=== PATIENT | female | born 1975 | race Caucasian/White ===

== ENCOUNTER → 2017-04-22 11:38 | Outpatient (CLI) | payer OTHER, SELFPAY | PROVIDERS: Family Provider Family Medicine; PCP Family Medicine; Visit Provider Family Medicine | DX: R00.2 Palpitations (principal) | CPT/HCPCS: 93225; 93226 ==

== ENCOUNTER → 2017-05-23 06:00 | Outpatient (CLI) | payer OTHER, SELFPAY ==
--- NOTE | 2017-05-23 10:28 | RAD_ITS ---
STUDY: X-RAY - ABDOMEN/PELVIS REASON FOR EXAM: Female, 42 years old. History of left-sided kidney stones. TECHNIQUE: Single AP view of the abdomen / pelvis. COMPARISON: None. FINDINGS: There is a moderate amount of colonic fecal material. The visualized liver, spleen and kidneys are grossly normal in size and morphology. A 2.9 mm well-defined calcification is seen in the left hemipelvis. This most likely represents a phlebolith. Normal visualized osseous structures. RAD/Abdomen Single View IMPRESSION: Findings suggestive of a phlebolith in the left hemipelvis. Electronically Signed: Anibal Feliz MD at 10:47 EDT Tel [phone], Service support ,
[2017-05-23 10:53] VITALS: BP 120/80; PULSE 81; RESP 16; TEMP 36.8; O2SAT 100; BMI 27.6
[2017-05-23 10:53] LABS: Internal QC Validated? YES +Cl - CLEAR BKGD; Pregnancy, Urine Negative Negative
--- OUTSIDE RECORDS SUMMARY | 2017-07-25 20:16 | XMS RPT_ITS ---
:1975 Author Organization OHIP Care Team Providers Name Role Phone ACOSTA COHN) Attending Unavailable ACOSTA COHN) Referring Unavailable ACOSTA COHN) Referring Unavailable ACOSTA COHN) Referring Unavailable ACOSTA COHN) Attending Unavailable ACOSTA COHN) Referring Unavailable TOÑITO KLEIN DO Admitting Unavailable TOIÑTO KLEIN DO Attending Unavailable TOÑITO KLEIN DO Primary Care Unavailable DIDUR, GERARD DO Admitting Unavailable DIDPRIYANK, GERARD QUINTANILLA Attending Unavailable NO, DOCTOR ON Referring Unavailable GERARD GARCIA DO Primary Care Unavailable NO, DOCTOR ON Consulting Unavailable Raul Cohn Attending Unavailable Raul Cohn Referring Unavailable Raul Cohn Primary Care Unavailable Kwame Rahman Attending Unavailable Raul Cohn Referring Unavailable PROBLEMS PROBLEMS DATE TYPE CONDITION / CODE ATTENDING STATUS SOURCE 05/22/2017 Unknown R00.2 - RahmanShineel Active Edward Palpitations / Community R00.2(ICD-10) Hospital Repository 04/17/2017 Active Palpitations / NA Active Morgan R00.2(ICD-10) [facility] [place] Repository 04/17/2017 Active Unknown / LALIT, Active Eddie UNK(Unknown) ACOSTA Choi [facility] () [facility] Repository PROCEDURES PROCEDURES No Procedure Records FoundRESULTS RESULTS PROGRESS Observed: 07/18/2017 Status: COMPLETED Source: [place] 10:00 AM [facility] REPOSITORY HNO ID: [id number]: Acosta Gan) LalitService : (none)Author Type: PhysicianType: Progress NotesFiled: 07/18/2017 8:22 PMNote Text:Chief ComplaintPatient presents with:Establish Tyshawn Stern is a 42 year old female who presents here today formerly [facility], [facility] visit and 3 month follow up.Since last OV, patient states she did obtain the Holter monitor and wascalled and told it was benign, but results not available today. Patientstates that she has noted some more fluttering when she has been stressed,but no rapid bursts, chest pain , or tachycardia.Has history of peanut allergy. Noted that she had potato chips last nightand is worried that they may have had peanut oil on them. Feels liketongue is swollen, no trouble swallowing, and admits to mild SOB. Has nottaken anything for symptoms.Discussed weight with BMI >25. Discussed improved diet and exercise.Due for update on tetanus vaccine.Past medical history, appointments, medications, allergies reviewed.Previous Medical HistoryPAST MEDICAL HISTORYDiagnosis Date- Benign neoplasm of colon- Blood in stoolPrevious Surgical HistoryPAST SURGICAL HISTORYProcedure Laterality Date- COLONOSCOP W/ OR W/O [facility] SPEC 03/30/2008 Colonoscopy- DANDC, DIAG AND/OR THERAPEUTIC Dilation AND curettage- EXTRACTION ERUPTED TOOTH/EXR wisdom teeth- L'SCOPE DX W/WO BRUSHINGS/WASHINGS Laparoscopy- SIGMOIDS DIAG W/REM POLYP HT BX 12/30/07Family HistoryFAMILY HISTORYProblem Relation Age of Onset- Cancer Father Prostate- Cancer Maternal Grandmother OVARIAN- Diabetes Maternal Grandmother- Cancer Maternal Grandfather SKIN- Stroke Maternal Grandfather- Cancer Paternal GrandmotherPatient AllergiesALLERGIESAllergen Reactions- Antihistamines Mental Status Change- PeanutsCurrent MedicationsNo current outpatient prescriptions on file prior to visit.No current facility- administered medications on file prior to visit.Social HistorySocial History Marital status : Spouse name: Jose Years of education: 15 Number of children: 2Occupational 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*Social History Main Topics Smoking status: Never Smoker Smokeless tobacco: Never Used Alcohol use: Yes Comment: Rarely Drug use: No Sexual activity: Yes Partners with: Male control/protection: Surgical Comment: vasectomyReview of SymptomsREVIEW OF SYSTEMSGENERAL: No weight loss, malaise or feversNECK: Negative for lumps, goiter, pain and significant neck swellingRESPIRATORY: Negative for cough, hemoptysis, wheezing, COPD, dyspnea orshortness of breathCARDIOVASCULAR: Negative for chest pain, leg swelling, hypertension, CHFor palpitationsGI: No nausea, vomiting, or diarrheaSKIN: Negative for lesions, rash, and itchingEXAM:BP 116/72 Pulse 76 Resp 20 Ht 163.8 cm (5' 4.5) Wt 74.8 kg(165 lb) BMI 27.88 kg/m? General Appearance: Well appearing, alert, in no acute distress,well-hydrated, well nourished..Skin: Skin color, texture, turgor normal, no suspicious rashes or lesions.Oropharynx: Tongue normal size, no oropharyngeal swelling. Right tonsil2+, left 1+.Neck: Supple, no adenopathy; thyroid symmetric, normal size, no bruits.Lungs: Lungs clear to auscultation. No wheezing, rhonchi, rales.Heart: RRR without murmur, gallop, or rubs. No ectopy.Abdomen: Normal abdominal exam, Abdomen soft, non- tender. Bowel soundsnormal. No masses, organomegaly.Extremities: No deformities, edema , skin discoloration, clubbing orcyanosis. Good capillary refill. .Health Maintenance ListDTAP,TDAP,TD(2 - Tdap) due on 04/06/1997MAMMOGRAM due on 07/25/2017PAP EVERY 5 YEARS due on 02/03/2020HPV EVERY 5 YEARS due on 02/03/2020INFLUENZA CompletedData reviewedComponent Latest Ref Rng AND Units 03/15/2015 04/17/2017Protein, Total 6.3 - 8.0 g/dL 8.0Albumin 3.9 - 4.9 g/dL 4.3Calcium 8.5 - 10.2 mg/dL 9.0 9.3Bilirubin, Total 0.2 - 1.3 mg/dL 0.3Alkaline Phosphatase 32 - 117 U/L 76AST 13 - 35 U/L 18Glucose 74 - 99 mg/dL 85 103 (H)BUN 7 - 21 mg/dL 9 11Creatinine 0.58 - 0.96 mg/dL 0.72 0.80Sodium 136 - 144 mmol/L 138 136Potassium 3.7 - 5.1 mmol/L 4.8 3.7Chloride 97 - 105 mmol/L 102 98CO2 22 - 30 mmol/L 26 24Anion Gap 9 - 18 mmol/L 10 14ALT 7 - 38 U/L 13eGFR- >60 >60eGFR-All Other Races . >60 >60WBC 3.70 - 11.00 k/uL 10.04RBC 3.90 - 5.20 m/uL 4.34Hemoglobin 11.5 - 15.5 g/dL 12.9Hematocrit 36.0 - 46.0 % 39.7MCV 80.0 - 100.0 fL 91.5MCH 26.0 - 34.0 pG 29.7MCHC 30.5 - 36.0 g/dL 32.5RDW-CV 11.5 - 15.0 % 12.9Platelet Count 150 - 400 k/uL 267MPV 9.0 - 12.7 fL 12.3Absolute nRBC <0.01 k/uL < 0.01Triglyceride 30 - 149 mg/dL 77Cholesterol, Total 100 - 199 mg/dL 170HDL Cholesterol >55 mg/ dL 58VLDL Cholesterol 6 - 40 mg/dL 15LDL Cholesterol 60 - 129 mg/dL 97Fasting Time hrs 12TC:HDL Ratio 1.00 - 5.00 2.93LDL:HDL Ratio 0.50 - 3.55 1.67Non HDL Cholesterol 90 - 159 mg/dL 112TSH 0.400 - 5.500 uU/mL 2.760 2.890ASSESSMENT/PLAN:1. Palpitations - ICD9: 785.1, ICD10: R00.2 (primary diagnosis)Improved. Will obtain holter monitor results. Discussed symptoms may berelated to stress. Denies anxiety symptoms today.2. Overweight (BMI 25.0-29.9) - ICD9: 278.02, ICD10: E66.3Advised improved diet and exercise. Will recheck at future OV.3. Peanut allergy - ICD9: V15.01, ICD10: Z91.010No swelling today. Will have patient treat with OTC antihistamines. Givenprednisone for worsening symptoms. Discussed red flag symptoms which sheshould present to ED for.4. Need for vaccination - ICD9: V05.9, ICD10: Z23- TDAP VACCINE AGE 7+ Killian Cohn MD CNOV Observed: 07/18/2017 Status: COMPLETED Source: [place] 10:00 AM [facility] REPOSITORY Office Visit (FAMPWS) ---------BELEN STERN ([id number]) 1975 [facility] Time Provider Department07/18/17 10:00 AM ACOSTA COHN) FAMPWS During your visit today, we recorded the following information about you: Pulse Respiration Blood pressure Weight 76/minute 20/minute 116/72 74.8 kg Height 1.638 Homer Cohn MD 07/18/2017 8:22 PM SignedChief ComplaintPatient presents with:[facility] DepartmentJolanta Rosey Stern is a 42 year old female who [facility].Since last OV, patient states she did obtain the Holter monitor and was calledand told it was benign, but results not available today. Patient states thatshmariluz has noted some more fluttering when she has been stressed, but no rapidbursts, chest pain, or tachycardia.Has history of peanut allergy. Noted that she had potato chips last night andis worried that they may have had peanut oil on them. Feels like tongue isswollen, no trouble swallowing, and admits to mild SOB. Has not taken anythingfor symptoms.Discussed weight with BMI >25. Discussed improved diet and exercise.Due for update on tetanus vaccine.Past medical history, appointments, medications, allergies reviewed.Previous Medical HistoryPAST MEDICAL HISTORYDiagnosis Date- Benign neoplasm of colon- Blood in stoolPrevious Surgical HistoryPAST SURGICAL HISTORYProcedure Laterality Date- COLONOSCOP W/ OR W/O [facility] SPEC 03/30/2008 Colonoscopy- DANDC, DIAG AND/OR THERAPEUTIC Dilation AND curettage- EXTRACTION ERUPTED TOOTH/EXR wisdom teeth- L'SCOPE DX W/WO BRUSHINGS/WASHINGS Laparoscopy- SIGMOIDS DIAG W/REM POLYP HT BX Family HistoryFAMILY HISTORYProblem Relation Age of Onset- Cancer Father Prostate- Cancer Maternal Grandmother OVARIAN- Diabetes Maternal Grandmother- Cancer Maternal Grandfather SKIN- Stroke Maternal Grandfather- Cancer Paternal GrandmotherPatient AllergiesALLERGIESAllergen Reactions- Antihistamines Mental Status Change- PeanutsCurrent MedicationsNo current outpatient prescriptions on file prior to visit.No current facility-administered medications on file prior to visit.Social HistorySocial History Marital status: Spouse name: Jose Years of education: 15 Number of children: 2Occupational 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*Social History Main Topics Smoking status: Never Smoker Smokeless tobacco : Never Used Alcohol use: Yes Comment: Rarely Drug use: No Sexual activity: Yes Partners with: Male control/protection: Surgical Comment: vasectomyReview of SymptomsREVIEW OF SYSTEMSGENERAL: No weight loss, malaise or feversNECK: Negative for lumps, goiter, pain and significant neck swellingRESPIRATORY: Negative for cough, hemoptysis, wheezing, COPD, dyspnea orshortness of breathCARDIOVASCULAR: Negative for chest pain, leg swelling, hypertension, CHF orpalpitationsGI: No nausea, vomiting, or diarrheaSKIN: Negative for lesions, rash, and itchingEXAM: BP 116/72 Pulse 76 Resp 20 Ht 163.8 cm (5' 4.5) Wt 74.8 kg (165lb) BMI 27.88 kg/m? General Appearance: Well appearing, alert, in no acute distress, well-hydrated,well nourished..Skin: Skin color, texture, turgor normal, no suspicious rashes or lesions.Oropharynx: Tongue normal size, no oropharyngeal swelling. Right tonsil 2+,left 1+.Neck: Supple, no adenopathy; thyroid symmetric, normal size, no bruits.Lungs: Lungs clear to auscultation. No wheezing, rhonchi, rales.Heart: RRR without murmur, gallop, or rubs. No ectopy.Abdomen: Normal abdominal exam, Abdomen soft, non-tender. Bowel sounds normal.No masses, organomegaly.Extremities: No deformities, edema, skin discoloration, clubbing or cyanosis.Good capillary refill. .Health Maintenance ListDTAP,TDAP,TD(2 - Tdap) due on 1997MAMMOGRAM due on 07/25/2017PAP EVERY 5 YEARS due on 02/03/2020HPV EVERY 5 YEARS due on 2019INFLUENZA CompletedData reviewedComponent Latest Ref Rng AND Units 03/15/2015 04/17/2017Protein, Total 6.3 - 8.0 g/dL 8.0Albumin 3.9 - 4.9 g/dL 4.3Calcium 8.5 - 10.2 mg/dL 9.0 9.3Bilirubin, Total 0.2 - 1.3 mg/dL 0.3Alkaline Phosphatase 32 - 117 U/L 76AST 13 - 35 U/L 18Glucose 74 - 99 mg/dL 85 103 (H) BUN 7 - 21 mg/dL 9 11Creatinine 0.58 - 0.96 mg/dL 0.72 0.80Sodium 136 - 144 mmol/L 138 136Potassium 3.7 - 5.1 mmol/L 4.8 3.7Chloride 97 - 105 mmol/L 102 98CO2 22 - 30 mmol/L 26 24Anion Gap 9 - 18 mmol /L 10 14ALT 7 - 38 U/L 13eGFR- >60 >60eGFR-All Other Races . >60 >60WBC 3.70 - 11.00 k/uL 10.04RBC 3.90 - 5.20 m/uL 4.34Hemoglobin 11.5 - 15.5 g/dL 12.9Hematocrit 36.0 - 46.0 % 39.7MCV 80.0 - 100.0 fL 91.5MCH 26.0 - 34.0 pG 29.7MCHC 30.5 - 36.0 g/dL 32.5RDW-CV 11.5 - 15.0 % 12.9Platelet Count 150 - 400 k/uL 267MPV 9.0 - 12.7 fL 12.3Absolute nRBC <0.01 k/uL & lt;0.01Triglyceride 30 - 149 mg/dL 77Cholesterol, Total 100 - 199 mg/dL 170HDL Cholesterol >55 mg/dL 58VLDL Cholesterol 6 - 40 mg/dL 15LDL Cholesterol 60 - 129 mg/dL 97Fasting Time hrs 12TC:HDL Ratio 1.00 - 5.00 2.93LDL:HDL Ratio 0.50 - 3.55 1.67Non HDL Cholesterol 90 - 159 mg/dL 112TSH 0.400 - 5.500 uU/mL 2.760 2.890ASSESSMENT/PLAN:1. Palpitations - ICD9: 785.1, ICD10: R00.2 (primary diagnosis)Improved. Will obtain holter monitor results. Discussed symptoms may be relatedto stress. Denies anxiety symptoms today.2. Overweight (BMI 25.0-29.9) - ICD9: 278.02, ICD10: E66.3Advised improved diet and exercise. Will recheck at future OV.3. Peanut allergy - ICD9: V15.01, ICD10: Z91.010No swelling today. Will have patient treat with OTC antihistamines. Givenprednisone for worsening symptoms. Discussed red flag symptoms which she shouldpresent to ED for.4. Need for vaccination - ICD9: V05.9, ICD10: Z23- TDAP VACCINE AGE 7+ IMChristopZACH Keitaefkrysta Provider: ACOSTA COHN) [[id number]]Allergies As of Date: 07/18/2017 Noted Allergy ReactionANTIHISTAMINES 10/02/2004 1 - Mental Status ChangePEANUTS 2004 7 - Swelling Comments: Tongue swellingDate Reviewed: 07/18/2017Reviewed by: Cande Rojas) STEVEN Sousa - Fully AssessedReason for Visit: [facility] [42]Primary Visit Diagnosis: Palpitations [R00.2] Other Visit Diagnoses:Overweight (BMI 25.0-29.9) [E66.3] Peanut allergy [Z91.010] Need for vaccination [Z23] Screening mammogram, encounter for [Z12.31] Dense breast tissue on mammogram [R92.2]Order(s ):TDAP VACCINE AGE 7+ IM [[id number]] Order #: [id number] predniSONE (DELTASONE) 20 mg tabletTake 2 tablets by mouth once daily for 5 days.Disp: 10 tabletRfl: 0 ROMAINE DIAG W ZE BILAT [ [id number]] Order #: [id number] FUTUREPrescriptions as of 07/18/2017 Sig: PREDNISONE 20 MG TABLET Take 2 tablets by mouth once *Problem List As Of Date 07/18/2017 Noted Resolved Depressive disorder, not elsewhere classified [*INVALID FOR*04/15/2012 More... Irregular menses [N92.6] INVALID FOR*Prescriptions ordered this encounter Disp Refills Start End PREDNISONE 20 MG TABLET 10 t* 0 07/18/2017 Route: ORAL Sig: Take 2 tablets by mouth once daily for 5 days.Disposition: Return in about 6 months (around 01/17/2018).Follow-up and Disposition History RecordedEncounter Number: [id number] Status:Closed by ACOSTA COHN MD on 07/18/17 EMERGENCY REPORT Observed: 06/11/2017 Status: F Source: [place] 7:12 AM [facility] REPORT NAME ACCOUNT SEX AGE ADMIT DISCHARGE PT MED. RECORD# NUMBER DATE DATE TYPE DARCI [id number] F 42 05/10/17 05/10/17 3 BELEN ZAPIEN [id number] ROOM: ER DATE OF : 1975 DICTATING PHYSICIAN: Toñito Klein DATE OF SERVICE: CHIEF COMPLAINT: Left flank pain. HISTORY OF PRESENT ILLNESS: This is a 42- year-old female who presents complaining of left sided flank pain, which started earlier today. Patient reports that initially the pain started in her left low back and then started to radiate to her left lower quadrant and now is shooting down into her groin. Patient reports that she has never had pain like this in the past. It comes and goes and nothing seems to make it better. She does have associated nausea. She denies any fevers, chills, lightheadedness, dysuria or hematuria. PAST MEDICAL HISTORY: Palpitations. PAST SURGICAL HISTORY: She has had sigmoidoscopy and a dilation and curettage. ALLERGIES: She has allergies to antihistamines. SOCIAL HISTORY: She lives at home with her family. She is a nonsmoker and does not use alcohol or illicit drugs. Her immunizations are up to date. REVIEW OF SYSTEMS : A 10 point review of systems was obtained and positive for flank pain and nausea, and is otherwise negative. PHYSICAL EXAMINATION: Vital Signs: Blood pressure 120/87, pulse 79, respiratory rate 14, temperature 98.6, pulse oximetry 99% on room air. In general, the patient is alert, awake, and in no acute distress. Head is normocephalic, atraumatic. Pupils are equal, round and reactive to light and accommodation. Extraocular muscles are intact. Mucous membranes are moist. Neck is supple. Trachea is midline. Cardiac exam: Regular rate and rhythm. No murmurs appreciated. Lungs are clear to auscultation bilaterally. Abdomen is soft, nontender, nondistended with the exception of her left flank. She does have CVA tenderness and some left lower quadrant/suprapubic tenderness. Otherwise there is no rebound, guarding or rigidity. Extremities demonstrate no edema or gross deformity. Peripheral pulses are intact and equal bilaterally. She has normal strength and full range of motion. Motor and sensory are Page 1 of 2 BELEN STERN Emergency Room Report RUPALI grossly intact. The patient has appropriate mood and behavior. DIAGNOSTIC DATA: Her UA shows gross blood, but no obvious infection. It was sent for culture. Her CT scan shows left sided 4 mm ureterolithiasis at the UVJ with mild hydronephrosis. The patient's laboratory work is unremarkable. EMERGENCY DEPARTMENT COURSE AND TREATMENT: Patient is afebrile, nontoxic and in no acute distress. Patient does have discomfort when palpation of her costovertebral angle area on the left side. She also has left lower quadrant tenderness. I think the patient's symptoms could be related to nephrolithiasis, also pyelonephritis or diverticulitis are considerations. Patient was given IV fluids, pain medications, antiemetics. Laboratory work, UA and CT scan was ordered. The patient's symptoms were improved with treatment. Patient does not need to be started on antibiotics at this time, however, if her culture grows out something specific, we will send her antibiotics. Diagnostic results were discussed with the patient and her family. They expressed understanding and are agreeable with the plan. Patient will be discharged with a prescription for Percocet, Zofran, and Flomax. DIAGNOSIS: 1. Left sided ureterolithiasis. 2. Left sided hydronephrosis. DISPOSITION/PLAN: She was given a referral to follow up with Urology as an outpatient. Patient was discharged in stable condition. D: Toñito Klein DO TD: 05/10/17 18:17 JOB #: [id number] Transcribed by: abeba Electronically signed by: DR. TOÑITO KLEIN D.O. 06/11/17 07:12 Page 2 of 2 [facility] BELEN Emergency Room Report RUPALI ,URINE Collected: 05/23/2017 Status: F Source: [place] 10:43 AM [facility] REPOSITORY TYPE CODE TESTS RESULT OUT OF REFERENCE UNITS RANGE LAB L400.8000 Normal Negative HCGUQUAL Negative Result Comment: Very dilute urine specimens, as indicated by a low specificgravity, may not contain industrial sales representative levels of hCG.If is still suspected, a first morning urinespecimen should be collected 48 hours later and tested. Performed By: #### L400.7600 ####[facility] [id number] [place], [place], [address] ABDOMEN SINGLE VIEW Observed: 05/23/2017 Status: F [facility]: [place] [facility] [id number] [id number] Single ViewMR#: [id number] Acct: [id number]: BELEN STERN Rep #: [id number]: 1975 F 42 From: Anibal Feliz MDPCP: Raul Cohn MD Status: REG SDCStudy: Abdomen Single View Date of Exam : 05/23/17Exam# [id number] Ordering Dr: Venu Blanco MDSTUDY: X-RAY - ABDOMEN/PELVISREASON FOR EXAM: Female, 42 years old. History of left -sided kidneystones.TECHNIQUE: Single AP view of the abdomen / pelvis.COMPARISON: None. FINDINGS:There is a moderate amount of colonic fecal material.The visualized liver, spleen and kidneys are grossly normal in size andmorphology.A 2.9 mm well-defined calcification is seen in the left hemipelvis. Thismost likely represents a phlebolith. Normal visualized osseous structures. ORDER #: [id number] RAD/Abdomen Single ViewIMPRESSION:Findings suggestive of a phlebolith in the left hemipelvis.Electronically Signed:Anibal Feliz MD at 10:47 [facility] [phone], Service support , JZ: Venu Blanco MD ; Raul Cohn MD Size Maker:Signed EMERGENCY REPORT Observed: 05/15/2017 Status: F Source: [place]AUL[place] HERNANDEZCACHORROLEIF 3:07 AM [facility] REPORT NAME ACCOUNT SEX AGE ADMIT DISCHARGE PT MED. RECORD# NUMBER DATE DATE TYPE DARCI [id number] F 42 05/12/17 05/12/17 3 BELEN ZAPIEN [id number] ROOM: ER DATE OF : DICTATING PHYSICIAN: Gerard Garcia ADDENDUM White count came back at 20.5, but I think a lot this was reactive from her pain. Her hemoglobin was 12.8, hematocrit 37.4, platelet count 255,000. Sodium 133, potassium 3.4, chloride 101, CO2 is 22.9, BUN 7, creatinine 0.9. Glucose was 113. AST is 11, ALT is 11. Urinalysis did show 25 leukocyte esterase and 1 to 5 white cells. No bacteria, but since she had complained of a low grade fever at home, I did place her on Bactrim DS 1 p.o. b.i.d. dispense #14 with no refill, Diflucan 150 mg 1 daily dispense #3 with no refill, Zofran ODT 4 mg 1 every 8 hours as needed for nausea and vomiting, Toradol 10 mg 1 every 8 hours as needed for pain dispense #15 with no refill, and Percocet 5/325 mg 1 to 2 every 6 hours as needed for pain dispense #10 with no refill. Since she states the Percocet was not helping, I told her that she could double up on the Percocet, or I offered to write her for something for different for the pain, but she decided to go ahead and double up on the Percocet. Her pain is down to 4/10 here now, so I am going to give her 0.5 mg of Dilaudid and 4 mg of Zofran. If she continues to do well, we will let her go home to follow up with [facility] in the next 1 to 2 days. D : Gerard Garcia DO TD: 05/12/17 21:57 JOB #: [id number] Transcribed by: dian Electronically signed by: E-Sign: Dr. Gerard Garcia D.O. 05/15/17 03:06 Page 1 of 1 BELEN STERN Emergency Room Report RUPALI EMERGENCY REPORT Observed: 05/15/2017 Status: F Source: [place] 3:05 AM [facility] REPORT NAME ACCOUNT SEX AGE ADMIT DISCHARGE PT MED. RECORD# NUMBER DATE DATE TYPE DARCI, [id number] F 42 05/12/17 05/12/17 3 BELEN ZAPIEN [id number] ROOM: ER DATE OF : 1975 DICTATING PHYSICIAN: Gerard Garcia Date seen was May 12, 2017 at 10:20 a.m. HISTORY OF PRESENT ILLNESS: This is a 42-year-old female complaining of left flank pain that started on Saturday. She was seen here on Saturday and diagnosed with a 4 mm left kidney stone. Yesterday morning, her pain was good, but by noon the pain started to come back. She has been taking Percocet for the pain. The pain got very severe this morning at 9 a.m. and the Percocet was not helping. She presently rates the pain as a 10 on a severity scale of 1 to 10. She states it hurts up into her chest and up into her thoracic back. Her left flank pain gets worse with left leg movement. She did vomit once on Saturday. She still complains of nausea , but no further vomiting. Her states that she was running a low-grade fever of 100.7 last night. It was 99.5 this morning. PAST MEDICAL HISTORY: Previous kidney stones diagnosed here on Saturday. She has not had kidney stones before. ALLERGIES: She is allergic to antihistamines. SOCIAL HISTORY: She denies the use of alcohol or tobacco products. She lives at home with her family. REVIEW OF SYSTEMS: Positive for left flank pain with associated nausea and vomiting. She does admit to some chest pain and some upper thoracic back pain. She denies any abdominal pain, but does to nausea and vomiting. She denies any shortness of breath, cough, sputum, wheezing, fevers, sweats, chills, headache, numbness, unsteady gait, weakness, neck or joint pain, hives, hayfever, or swollen glands. Further review of systems is negative. PHYSICAL EXAMINATION: The patient is alert and oriented x3. She does appear in moderate distress secondary to left flank pain. HEENT: Head appears atraumatic. Pupils are equal and reactive to light. Red reflex intact bilaterally. Extraocular muscles are intact. No conjunctival injection. Nose exhibits no rhinorrhea or epigastric. Mouth: Mucous membranes are mildly dry. No pharyngeal erythema. Uvula is midline and elevates. Neck is supple. Trachea is midline. No JVD or lymphadenopathy. No posterior cervical tenderness. No nuchal rigidity. Lungs: Clear to auscultation in all lung titus. No adventitious sounds are noted. No accessory muscle use. CV : Heart rate and rhythm Page 1 of 2 [facility] [facility] Emergency Room Report RUPALI are regular without murmur. Abdomen is soft and nontender with normoactive bowel sounds x4 quadrants. No guarding or rigidity. No rebound. No palpable abdominal masses. No hepatosplenomegaly. Back does exhibit some left costovertebral angle tenderness. No midline tenderness or deformity. Extremities: No edema or cyanosis. Peripheral pulses are intact. No motor or sensory deficits are noted. Neurologic examination shows the patient to be alert and oriented x4. No motor or sensory deficits are noted. Normal speech pattern. The patient is pleasant, cooperative, but very anxious presently secondary to her severe left flank pain. EMERGENCY DEPARTMENT COURSE AND TREATMENT/PLAN/DISPOSITION: Presently, we will obtain some screening blood work to look for any changes from the blood work done on Saturday and we will review her CAT scan from Saturday, but we will try to avoid repeating a CAT scan at this point. Dilaudid 0.5 mg, Phenergan 6.25 mg IV for the pain, and also I had given her Toradol 30 mg IV already, and then we will reevaluate. D: Gerard Garcia DO TD: 05/12/17 18:16 JOB #: [id number] Transcribed by: mike Electronically signed by: E-Sign: Dr. Gerard Garcia D.O. 05/29 03:04 Page 2 of 2 [facility] Emergency Room Report RUPALI URINE Collected: 05/12/2017 Status: F Source: [facility] 11:39 AM [facility] REPOSITORY TYPE CODE TESTS RESULT OUT OF REFERENCE UNITS RANGE LAB NEGATIVE UR(LOINC) UR NEGATIVE LAB INTERNAL QC(LOINC) INTERNAL PASS QC LAB EXTERNAL QC DONE?(LOINC) EXTERNAL YES QC DONE? Performed By: #### [id number] ####[facility],[address] [place] [address] URINALYSIS Collected: 05/12/2017 Status: F Source: [facility] 11:39 AM [facility] REPOSITORY TYPE CODE TESTS RESULT OUT OF REFERENCE UNITS RANGE LAB URINALYSIS (LOINC) URINALYSIS Result Comment: URINALYSIS LAB Specimen Type(LOINC) Specimen Type Void LAB Color(LOINC) NORMAL: Color YELLOW p.yel LAB Clarity(LOINC) NORMAL: CLEAR Clarity clear LAB ph(LOINC) NORMAL: ph 6.5 5.0-8.0 LAB Protein(LOINC) NORMAL: Protein NEG NEGATIVE LAB Glucose(LOINC) NORMAL: Glucose NORMAL NORM LAB Ketone(LOINC) Abnormal NORMAL: Ketone 15 NEGATIVE LAB Bilirubin(LOINC) NORMAL: Bilirubin NEG NEGATIVE LAB Blood(LOINC) Abnormal NORMAL: Blood 25 NEGATIVE LAB Urobilinog(LOINC) NORMAL: Urobilinog NORMAL NORM LAB Sp [place](LOINC) Low NORMAL: Sp [place] 1.010-1.030 1.005 LAB Nitrite(LOINC) NORMAL: Nitrite NEG NEGATIVE LAB Leukocytes(LOINC) Abnormal NORMAL: Leukocytes 25 NEGATIVE LAB Microscopic(LOINC ) Microscopic SEE BELOW Result Comment: MICROSCOPIC LAB Wbc(LOINC) 0-5/hpf Wbc 1-5 LAB Rbc(LOINC) 0-3/hpf Rbc NONE LAB Casts(LOINC) Casts NONE LAB Crystals(LOINC) Crystals NONE LAB Amorphous(LOINC) Amorphous NONE LAB Bacteria(LOINC) Bacteria NONE LAB Epi Cells(LOINC) Epi Cells NONE LAB Mucous(LOINC) Mucous NONE LAB Yeast(LOINC) Yeast NONE Performed By: #### [id number] ####[facility],[address] [place] [address] Observed: 05/12/2017 Status: F Source: [facility] CULTURE URINE 11:39 [facility] REPOSITORY CULTURE URINE _URINE CULTURE_ M I C R O B I O L O G Y R E P O R T FINAL Antimicrobial Susceptibility and Organism Identification Report Specimen Number : [id number] Requested : 05/12/17 Specimen Source : CLEAN CATCH URINE Collected : 11:39 [facility] of Isolation : Emergency Room Received : 05/12/17 11:39 Requesting Physician : JOSE Patient/Specimen Tests and Comments Specimen Comments FINAL REPORT: NO GROWTH AT 48 HOURS Tech : Source : CLEAN CATCH URINE ID # : [id number] FINAL Report Date : / / : Collected : 05/12/17 11:39 05/14/17.1157.BKO. 05/13/17.1227.BKO. .1157.BKO.COMPLETE Performed By: #### [id number] ####[facility],[address] [place] [address] CBC Collected: 05/12/2017 Status: F [facility] REPOSITORY TYPE CODE TESTS RESULT OUT OF RANGE REFERENCE UNITS LAB CBC(LOINC) CBC Result Comment: CBC-COMPLETE BLOOD COUNT LAB WBC(LOINC) High 4.5 - 10.8 x 10EE3/UL WBC 20.5 LAB RBC(LOINC) 4.10 - x 10EE6/UL RBC 5.30 4.21 LAB HEMOGLOBIN(LOINC 12.0 - g/dl ) HEMOGLOBIN 16.0 12.8 LAB HEMATOCRIT(LOINC 34.0 - % ) HEMATOCRIT 46.0 37.4 LAB MCV(LOINC) 80 - 99 fl MCV 89 LAB MCH(LOINC) 27 - 33 pg MCH 30 LAB MCHC(LOINC) 32 - 36 X10 3 MCHC 34 LAB RDW/CV(LOINC) 12.0 - % RDW/CV 15.6 12.6 LAB PLATELET(LOINC) 150 - 450 x10EE3/UL PLATELET 255 LAB MPV(LOINC) 6.6 - 10.5 fl MPV 10.3 Result Comment: AUTOMATED DIFFERENTIAL LAB NEUT %(LOINC) High 46.0 - 76.0 % NEUT % 80.2 LAB LYMPH %(LOINC) Low 20.0 - 45.0 % LYMPH % 7.7 LAB MONOS %(LOINC) High 0.0 - 10.0 % MONOS % 11.6 LAB EO %(LOINC) 0.0 - 7.0 % EO % 0.1 LAB BASO %(LOINC) 0.0 - 2.0 % BASO % 0.4 LAB Lymph #(LOINC) 0.80 - 2.80 x10EE3/U Lymph # L 1.60 LAB Neut #(LOINC) High 1.50 - 7.10 x10EE3/U Neut # L 16.40 LAB [place] #(LOINC) High 0.20 - 1.00 x10EE3/U [place] # L 2.40 LAB EO #(LOINC) 0.00 - 0.50 x10EE3/U EO # L 0.00 LAB Baso #(LOINC) 0.00 - 0.10 x10EE3/U Baso # L 0.10 LAB MANUAL DIFF(LOINC) MANUAL DIFF N/A LAB MORPHOLOGY(LOINC ) MORPHOLOGY N/A Result Comment: {CD] Performed By: #### [id number] ####[facility],[address] [place], [place] [id number] CMP WITH EGFR Collected: 05/12/2017 Status: F Source: [facility] 10:20 AM [facility] REPOSITORY TYPE CODE TESTS RESULT OUT OF RANGE REFERENCE UNITS LAB CMP with eGFR(LOINC) CMP with eGFR Result Comment: COMPREHENSIVE METABOLIC PANEL LAB SODIUM(LOINC) Low 136 - 145 mmol/l SODIUM 133 LAB POTASSIUM(LOINC) Low 3.5 - 5.1 mmol/L POTASSIUM 3.4 LAB CHLORIDE(LOINC) 98 - 107 mmol/L CHLORIDE 101 LAB CO2(LOINC) 21.0 - mmol/L CO2 31.0 22.9 LAB GLUCOSE(LOINC) High 74 - 106 mg/dl GLUCOSE 113 LAB BUN(LOINC) 6 - 20 mg/dl BUN 7 LAB CREATININE(LOINC) 0.6 - 1.2 mg/dl CREATININE 0.9 LAB AST/SGOT(LOINC) Low 13 - 39 U/L AST/SGOT 11 LAB ALK PHOS(LOINC) 38 - 126 U/L ALK PHOS 66 LAB CALCIUM(LOINC) 8.6 - mg/dl CALCIUM 10.2 9.3 LAB TOTAL 6.4 - 8.3 g/dl PROTEIN(LOINC) TOTAL PROTEIN 7.5 LAB ALBUMIN(LOINC) 3.4 - 4.8 g/dL ALBUMIN 4.0 LAB GLOBULIN(LOINC) 1.5 - 3.8 G/DL GLOBULIN 3.5 LAB A/G RATIO(LOINC) 0.9 - 1.6 A/G RATIO 1.1 LAB TOTAL BILI(LOINC) 0.0 - 1.5 mg/dl TOTAL BILI 0.8 LAB B/C RATIO(LOINC) 0 - 30 ratio B/C RATIO 8 LAB ALT/SGPT(LOINC) 8 - 35 U/L ALT/SGPT 11 LAB ANION GAP(LOINC) 10 - 20 mmol/L ANION GAP 13 LAB AGE(LOINC) years AGE 42 LAB eGFR(LOINC) 60 - 999 ML/MINUTE eGFR >60 LAB eGFR(AA)(LOINC) 60 - 999 ML/MINUTE eGFR(AA) >60 Result Comment: ACCORDING TO THE NATIONAL KIDNEY DISEASE EDUCATION PROGRAM(NKDE), A NORMAL eGFRIS A VALUE GREATER THAN OR EQUAL TO 60 ML/MIN/1.73 SQ METERS.CHRONIC KIDNEY DISEASE: <60mL/MIN/1.73 SQ METERSKIDNEY FAILURE: <15mL/MIN/1.73 SQ METERSTHIS TEST SHOULD ONLY BE USED FOR PATIENTS 18 YEARS OF AGE AND OLDER. Performed By: #### [id number] ####[place] [id number] URINE Collected: 05/10/2017 Status: F Source: [facility] 12:45 PM [facility] REPOSITORY TYPE CODE TESTS RESULT OUT OF REFERENCE UNITS RANGE LAB NEGATIVE UR(LOINC) UR NEGATIVE LAB INTERNAL QC(LOINC) INTERNAL PASS QC LAB EXTERNAL QC DONE?(LOINC) EXTERNAL YES QC DONE? Performed By: #### [id number] ####[place] [id number] URINALYSIS Collected: 05/10/2017 Status: F Source: [facility] 12:45 [facility] REPOSITORY TYPE CODE TESTS RESULT OUT OF REFERENCE UNITS RANGE LAB URINALYSIS (LOINC) URINALYSIS Result Comment: URINALYSIS LAB Specimen Type(LOINC) Specimen Type Void LAB Color(LOINC) NORMAL: Color YELLOW rosi LAB Clarity(LOINC) NORMAL: CLEAR Clarity clear LAB ph(LOINC) NORMAL: ph 7 5.0-8.0 LAB Protein(LOINC) Abnormal NORMAL: Protein 30 NEGATIVE LAB Glucose(LOINC) NORMAL: Glucose NORMAL NORM LAB Ketone(LOINC) Abnormal NORMAL: Ketone 5 NEGATIVE LAB Bilirubin(LOINC) NORMAL: Bilirubin NEG NEGATIVE LAB Blood(LOINC) Abnormal NORMAL: Blood 250 NEGATIVE LAB Urobilinog(LOINC) NORMAL: Urobilinog NORMAL NORM LAB Sp [place](LOINC) NORMAL: Sp [place] 1.010-1.030 1.015 LAB Nitrite(LOINC) NORMAL: Nitrite NEG NEGATIVE LAB Leukocytes(LOINC) Abnormal NORMAL: Leukocytes 25 NEGATIVE LAB Microscopic(LOINC ) Microscopic SEE BELOW Result Comment: MICROSCOPIC LAB Wbc(LOINC) 0-5/hpf Wbc 1-5 LAB Rbc(LOINC) 0-3/hpf Rbc 5-10 LAB Casts(LOINC) Casts NONE LAB Crystals(LOINC) Crystals NONE LAB Amorphous(LOINC) Amorphous NONE LAB Bacteria(LOINC) Bacteria NONE LAB Epi Cells(LOINC) Epi Cells NONE LAB Mucous(LOINC) Mucous NONE LAB Yeast(LOINC) Yeast NONE Performed By: #### [id number] ####[facility],[address] [place] [address] CT KUB (KIDNEY STONE Observed: 05/10/2017 Status: F Source: [facility] PROTOCOL) 11:35 AM [place] [id number] Patient: BELEN STERN Phone#: : 1975 Age: 42 Gender: F Pt. Type: ER Account: [id number] Location: [facility] Ordering: TOÑITO KLEIN Exam Date: 05/10/2017/11:30 Family Phys: Charge Code: [id number] Physician: [place] Order #: [id number] DLP Dose#: [id number] PROCEDURE: CT ABDOMEN AND PELVIS WITHOUT CONTRAST COMPARISON: None. INDICATIONS: Flank pain TECHNIQUE: After obtaining the patient's consent, CT images of the abdomen and pelvis were created without non-ionic intravenous contrast material. All CT scans at this facility use dose modulation, iterative reconstruction, and/or weight based dosing when appropriate to reduce radiation dose to as low as reasonably achievable. IV CONTRAST: No IV contrast used,0ml TOTAL DOSE: 12.20 CTDIvol(mGy) FINDINGS: KIDNEYS: Right kidney is unremarkable. There is no evidence of hydronephrosis. The anterior aspect of the left kidney demonstrates poor margination immediately superior to the renal pelvis. This may represent focal fat stranding although small myolipoma cannot be excluded. There is mild hydronephrosis. A 4 mm calculus is present in the distal ureter immediately proximal to the ureterovesical junction. The bladder is unremarkable. ADRENALS: Normal. No mass or enlargement. URINARY BLADDER: Normal. No visible focal wall thickening, lesion , or calculus. LIVER: Normal. No enlargement, atrophy, abnormal density, or significant focal lesion. BILIARY: Normal. No visible dilatation or calcification. PANCREAS: Normal. No lesion, fluid collection, ductal dilatation, or atrophy. SPLEEN: Normal. No enlargement or focal lesion. AORTA/VASCULAR: Normal. No aneurysm. RETROPERITONEUM: Normal. No mass or adenopathy. Continued Report - Page 2 of 2 Patient: BELEN STERN Phone#: : 1975 Age: 42 Gender: F Pt. Type: ER Account: [id number] Location: 052 Ordering: TOÑITO KLEIN Exam Date: 05/10/2017/11:30 Family Phys: Charge Code: [id number] Physician: [place] Order #: [id number] DLP Dose#: [id number] BOWEL/MESENTERY: Normal. No visible mass, obstruction, or bowel wall thickening. ABDOMINAL WALL: Normal. No mass or hernia. PELVIC NODES: Normal. No adenopathy. PELVIC ORGANS: Normal. No visible mass. Pelvic organs appropriate for patient age. BONES: Normal. No bony lesion or fracture. LUNG BASES: Normal. No visible pulmonary or pleural disease. OTHER: Negative. CONCLUSION: There is mild left-sided hydronephrosis. A 4 mm calculus is present immediately proximal to the ureterovesical junction. There is an area of mildly mixed attenuation at the anterior aspect of the left kidney and may represent focal fat stranding versus small myolipoma. Dictated by: Teresa Parekh MD on 05/10/2017 at 12:10 Approved by: Teresa Parekh MD on 05/10/2017 at 12:10 CBC Collected: 05/10/2017 Status: F Source: [facility] 11:03 [facility] REPOSITORY TYPE CODE TESTS RESULT OUT OF RANGE REFERENCE UNITS LAB CBC(LOINC) CBC Result Comment: CBC-COMPLETE BLOOD COUNT LAB WBC(LOINC) 4.5 - 10.8 x 10EE3/UL WBC 9.5 LAB RBC(LOINC) 4.10 - x 10EE6/UL RBC 5.30 4.41 LAB HEMOGLOBIN(LOINC) 12.0 - g/dl HEMOGLOBIN 16.0 13.5 LAB HEMATOCRIT(LOINC) 34.0 - % HEMATOCRIT 46.0 38.9 LAB MCV(LOINC) 80 - 99 fl MCV 88 LAB MCH(LOINC) 27 - 33 pg MCH 31 LAB MCHC(LOINC) 32 - 36 X10 3 MCHC 35 LAB RDW/CV(LOINC) 12.0 - % RDW/CV 15.6 12.8 LAB PLATELET(LOINC) 150 - 450 x10EE3/UL PLATELET 253 LAB MPV(LOINC) 6.6 - 10.5 fl MPV 9.6 Result Comment: AUTOMATED DIFFERENTIAL LAB NEUT %(LOINC) High 46.0 - 76.0 % NEUT % 81.0 LAB LYMPH %(LOINC) Low 20.0 - 45.0 % LYMPH % 11.0 LAB MONOS %(LOINC) 0.0 - 10.0 % MONOS % 6.3 LAB EO %(LOINC) 0.0 - 7.0 % EO % 0.4 LAB BASO %(LOINC) 0.0 - 2.0 % BASO % 1.3 LAB Lymph #(LOINC) 0.80 - 2.80 x10EE3/U Lymph # L 1.00 LAB Neut #(LOINC) High 1.50 - 7.10 x10EE3/U Neut # L 7.70 LAB [place] #(LOINC) 0.20 - 1.00 x10EE3/U [place] # L 0.60 LAB EO #(LOINC) 0.00 - 0.50 x10EE3/U EO # L 0.00 LAB Baso #(LOINC) 0.00 - 0.10 x10EE3/U [place] # L 0.10 LAB MANUAL DIFF(LOINC) MANUAL DIFF N/A LAB MORPHOLOGY(INC ) MORPHOLOGY N/A Result Comment: {CD] Performed By: #### [id number] ####[facility],[address] [place] [address] CMP WITH EGFR Collected: 05/10/2017 Status: F Source: [facility] 11:03 [facility] REPOSITORY TYPE CODE TESTS RESULT OUT OF RANGE REFERENCE UNITS LAB CMP with eGFR(LOINC) CMP with eGFR Result Comment: COMPREHENSIVE METABOLIC PANEL LAB SODIUM(LOINC) Low 136 - 145 mmol/l SODIUM 134 LAB POTASSIUM(LOINC) 3.5 - 5.1 mmol/L POTASSIUM 3.7 LAB CHLORIDE(LOINC) 98 - 107 mmol/L CHLORIDE 103 LAB CO2(LOINC) 21.0 - mmol/L CO2 31.0 21.7 LAB GLUCOSE(LOINC) High 74 - 106 mg/dl GLUCOSE 119 LAB BUN(LOINC) 6 - 20 mg/dl BUN 13 LAB CREATININE(LOINC) 0.6 - 1.2 mg/dl CREATININE 0.9 LAB AST/SGOT(LOINC) 13 - 39 U/L AST/SGOT 13 LAB ALK PHOS(LOINC) 38 - 126 U/L ALK PHOS 64 LAB CALCIUM(LOINC) 8.6 - mg/dl CALCIUM 10.2 9.2 LAB TOTAL 6.4 - 8.3 g/dl PROTEIN(LOINC) TOTAL PROTEIN 7.4 LAB ALBUMIN(LOINC) 3.4 - 4.8 g/dL ALBUMIN 4.2 LAB GLOBULIN(LOINC) 1.5 - 3.8 G/DL GLOBULIN 3.2 LAB A/G RATIO(LOINC) 0.9 - 1.6 A/G RATIO 1.3 LAB TOTAL BILI(LOINC) 0.0 - 1.5 mg/dl TOTAL BILI 0.7 LAB B/C RATIO(LOINC) 0 - 30 ratio B/C RATIO 14 LAB ALT/SGPT(LOINC) 8 - 35 U/L ALT/SGPT 13 LAB ANION GAP(LOINC) 10 - 20 mmol/L ANION GAP 13 LAB AGE(LOINC) years AGE 42 LAB eGFR(LOINC) 60 - 999 ML/MINUTE eGFR >60 LAB eGFR(AA)(LOINC) 60 - 999 ML/MINUTE eGFR(AA) >60 Result Comment: ACCORDING TO THE NATIONAL KIDNEY DISEASE EDUCATION PROGRAM(NKDE), A NORMAL eGFRIS A VALUE GREATER THAN OR EQUAL TO 60 ML/MIN/1.73 SQ METERS.CHRONIC KIDNEY DISEASE: <60mL/MIN/1.73 SQ METERSKIDNEY FAILURE: <15mL/MIN/1.73 SQ METERSTHIS TEST SHOULD ONLY BE USED FOR PATIENTS 18 YEARS OF AGE AND OLDER. Performed By: #### [id number] ####[facility],[address] [place], [place] [id number] XR CHEST 2V FRONTAL/LAT Observed: 04/17/2017 Status: F Source: [place] 5:15 PM [facility] REPOSITORY * * *Final Report* * *DATE OF EXAM: Apr 17 2017 5:15PM WOX [id number] - XR CHEST 2V FRONTAL/LAT / REASON: Palpitations * * * * Physician Interpretation * * * * EXAMINATION: CHEST RADIOGRAPH (2 VIEW FRONTAL and LATERAL)Clinical History: PalpitationsMQ: [id number]_4Comparison: None.RESULT:Lines, tubes, and devices: None.Lungs and pleura : No consolidation. No lung mass. No pleural effusion.Cardiomediastinal silhouette: Normal cardiomediastinal silhouette.Other: None.IMPRESSION:No acute radiographic abnormality.Size Maker: NADIA Transcribe Date/Time: Apr 17 2017 5: 22PDictated by : KLAUS MOSCOSO MDThijose examination was interpreted and the report reviewed and electronically signed by: KLAUS MOSCOSO MD on Apr 17 2017 5:22PM [id number] [id number] Observed: 04/17/2017 Status: COMPLETED Source: [place] 5:07 PM [facility] REPOSITORY HNO ID: [id number]: Bel Montero RtService: (none) Author Type: (none)Type: Progress NotesFiled: 04/17/2017 5:15 PMNote Text: Radiology Service Progress NotePATIENT NAME: Belen SternN: [id number] OF SERVICE : April 17, 2017TIME: 5:07 PMPATIENT IDENTITY VERIFICATION COMPLETED USING TWO (2 ) METHODS: Patientconfirmed name verbally and Date of .PATIENT GENDER DATA : Female. status: : NoBreastfeeding status: NO.PATIENT RELEVANT IMPLANT DATA REVIEWED: Not ApplicableRADIOLOGY DEPARTMENT: General X-ray: Exam(s) Completed: Chest X-RayPERIPHERAL IV DATA: Not applicableSIGNED BY: Bel Montero [facility] 2017 5:07 PM COMP METABOLIC PANEL Collected: 04/17/2017 Status: F Source: [place] 4:53 PM [facility] REPOSITORY TYPE CODE TESTS RESULT OUT OF REFERENCE UNITS RANGE LAB TP 6.3-8.0 g/dL Protein, Total 8.0 LAB ALB 3.9-4.9 g/dL Albumin 4.3 LAB CA 8.5-10.2 mg/dL Calcium, Total 9.3 LAB TBIL 0.2-1.3 mg/dL Bilirubin, 0.3 Total LAB ALKP 32-117 U/L Alkaline 76 Phosphatase LAB AST 13-35 U/L AST 18 LAB GLU High 74-99 mg/dL Glucose 103 Result Comment: The [place] Diabetes Association (ADA) provides guidance for cutoff values for fasting glucose and random glucose. The ADA defines fasting as no caloric intake for at least 8 hours. Fasting plasma glucose results between 100 to 125 mg/dL indicate increased risk for diabetes (prediabetes) .Fasting plasma glucose results greater than or equal to 126 mg/dL meet the criteria for diagnosis of diabetes. In the absence of unequivocal hyperglycemia, results should be confirmed by repeat testing. In a patient with classic symptoms of hyperglycemia or hyperglycemic crisis, random plasma glucose results greater than or equal to 200 mg/dL meet the criteria for diagnosis of diabetes.Reference: Standards of Medical Care in Diabetes 2016, [place] Diabetes Association. Diabetes Care. 2016.39( Suppl 1). LAB BUN 7-21 mg/dL BUN 11 LAB CRET 0.58-0.96 mg/dL Creatinine 0.80 LAB NA 136-144 mmol/L Sodium 136 LAB K 3.7-5.1 mmol/L Potassium 3.7 LAB CL 97-105 mmol/L Chloride 98 LAB CO2 22-30 mmol/L CO2 24 LAB AGAP 9-18 mmol/L Anion Gap 14 LAB ALT 7-38 U/L ALT 13 LAB GFRAA eGFR- Amer. >60 LAB GFRNAA . eGFR-All Other Races >60 Result Comment: eGFR (Estimated GFR) Units of measure: mL/min/1.73 meters squaredeGFR is derived from the reexpressed MDRD Study equation using the following parameters: serum creatinine, age, gender and race. The creatinine assay has been calibrated to be traceable to IDMS.An eGFR <60 mL/min/1.73m2 for >3 months is consistent with chronic kidney disease. Refer to KDOQI guidelines for clinical interpretation.In patients with unstable renal function, e.g. those with acute kidney injury, the eGFR may not accurately reflect actual GFR. Performed By: #### CMP, TSH, CBC ####[facility] [address] [place], [place] [phone] TSH Collected: 04/17/2017 Status: F Source: [place] 4:53 PM [facility] REPOSITORY TYPE CODE TESTS RESULT OUT OF RANGE REFERENCE UNITS LAB TSH 0.400-5.500 uU/mL TSH 2.890 Result Comment: If the patient is , TSH reference range varies by gestational period:First Trimester 0.100-2.500 uU/mLSecond Trimester 0.200-3.000 uU/mLThird Trimester 0.300-3.000 uU/mLReferences: 1. De Jesse L, Lydia M, Juan Antonio EK, et al. Management of Thyroid Dysfunction during and : An Endocrine Society Clinical Practice Guideline. J Clin Endocrinol Metab, 2012:97:7704-8532. 2. Bandar DS. Overview of thyroid disease in . UpToDate. 2016. Accessed on July 29, 2015. Performed By: #### CMP, TSH, CBC ####[facility] [address] [place], [place] [phone] CBC Collected: 04/17/2017 Status: F Source: [place] 4:53 PM [facility] REPOSITORY TYPE CODE TESTS RESULT OUT OF REFERENCE UNITS RANGE LAB WBC 3.70-11.00 k/uL WBC 10.04 LAB RBC 3.90-5.20 m/uL RBC 4.34 LAB HGB 11.5-15.5 g/dL Hemoglobin 12.9 LAB HCT 36.0-46.0 % Hematocrit 39.7 LAB MCV 80.0-100.0 fL MCV 91.5 LAB MCH 26.0-34.0 pG MCH 29.7 LAB MCHC 30.5-36.0 g/dL MCHC 32.5 LAB RDWCV 11.5-15.0 % RDW-CV 12.9 LAB PLTCT 150-400 k/uL Platelet 267 Count LAB MPV 9.0-12.7 fL MPV 12.3 LAB ABSNUC <0.01 k/uL Absolute nRBC <0.01 Performed By: #### CMP, TSH, CBC ####[facility] [address] [place], [place] [phone] PROGRESS Observed: 04/17/2017 Status: COMPLETED Source: [place] 4:19 PM [facility] REPOSITORY HNO ID: [id number]: Acosta Gan) Fer : (none)Author Type: PhysicianType: Progress NotesFiled: 04/17/2017 7:25 PMNote Text:Chief ComplaintPatient presents with:Palpitations: tachycardiaHPIFrancejose Stern is a 42 year old female who presents here today for AboveComplaints..Patient states that for the last week she has had intermittentpalpitations and tachycardia which occur several times per day. Wearsapple watch and has reviewed her HR and noted that it has gone up into [id number] with fluttering in chest and one night she work up from a nap and herHR was 190s, though she couldn't tell at the time. Symptoms last for justseconds and dissipate on own. Has also been having some tightness in herchest which may be worsened during the fluttering episodes. Tightnessradiates to back between shoulder blades. Has not had radiation to leftshoulder or neck. Denies lightheadedness, nausea, sweating, syncope,worsening with exertion, improvement with rest.Past medical history, appointments, medications, allergies reviewed.Previous Medical HistoryPAST MEDICAL HISTORYDiagnosis Date- Benign neoplasm of colon- Blood in stoolPrevious Surgical HistoryPAST SURGICAL HISTORYProcedure Laterality Date- COLONOSCOP W/ OR W/O BRSH SPEC 03/30/2008 Colonoscopy- DANDC, DIAG AND/OR THERAPEUTIC Dilation AND curettage- EXTRACTION ERUPTED TOOTH/EXR wisdom teeth- L'SCOPE DX W /WO BRUSHINGS/WASHINGS Laparoscopy- SIGMOIDS DIAG W/REM POLYP HT BX 12/30/07Family HistoryFAMILY HISTORYProblem Relation Age of Onset- Cancer Maternal Grandfather SKIN- Cancer Maternal Grandmother OVARIAN- Stroke Maternal Grandfather- Diabetes Maternal Grandmother- Cancer Paternal Grandmother- Cancer Father ProstatePatient AllergiesALLERGIESAllergen Reactions- Antihistamines Mental Status Change - PeanutsCurrent MedicationsNo current outpatient prescriptions on file prior to visit.No current facility-administered medications on file prior to visit.Social HistorySocial History Marital status: Spouse name: Jose Years of education: 15 Number of children: 2Occupational 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*Social History Main Topics Smoking status: Never Smoker Smokeless status: Never Used Alcohol use: Yes Comment: Rarely Drug use: No Sexual activity: Yes Partners with: Male control/protection: Surgical Comment: vasectomyReview of SymptomsREVIEW OF SYSTEMSSee HPIEXAM:BP 128/90 Pulse 76 Temp 37.3 ?C (99.2 ?F) (Tympanic) Resp 14 Wt77.1 kg (170 lb) SpO2 97% BMI 29.18 kg/q9Vpzopll Appearance: Well appearing, alert, in no acute distress,well- hydrated, well nourished..Skin: Skin color, texture, turgor normal, no suspicious rashes or lesions.Neck: Supple, no adenopathy; thyroid symmetric, normal size, no bruits.Lungs: Lungs clear to auscultation. No wheezing, rhonchi, rales.Heart: RRR without murmur, gallop, or rubs. No ectopy.Extremities: No deformities, edema, skin discoloration, clubbing orcyanosis. Good capillary refill. .Health Maintenance ListTETANUS due on 01/19/2021MAMMOGRAM due on 07/25/2017PAP EVERY 5 YEARS due on 02/03/2020HPV EVERY 5 YEARS due on 02/03/2020INFLUENZA CompletedEKG: NSR at 73 bpm, possible left atrial enlargement, low voltage QRSASSESSMENT/PLAN:1. Palpitations - ICD9: 785.1, ICD10: R00.2Normal EKG and exam today. Will obtain blood work and holter monitor aswell as CXR due to chest tightness with radiation to back. Will call withresults.- ECG COMPLETE W INTERPRETATION- CBC- COMP METABOLIC PANEL- TSH BLD- XR CHEST 2V FRONTAL/LAT- HOLTER MONITOR 48 HOURChristopher Jimbo Cohn MD CNOV Observed: 04/17/2017 Status: COMPLETED Source: [place] 4:00 PM [facility] REPOSITORY Office Visit (FAMPWS) ---------BELEN STERN ([id number]) 1975 FDate Time Provider Department04/17/17 4:00 PM [facility]) SYEDA During your visit today, we recorded the following information about you: Temperature Pulse Respiration Blood pressure 99.2 degrees 76/minute 14/minute 120/76 Weight 77.1 kgChristopher Jimbo Cohn MD 04/17/2017 7:25 PM SignedChief ComplaintPatient presents with: Palpitations: tachycardiaHPIFrances Rosey Stern is a 42 year old female who presents here today for AboveComplaints..Patient states that for the last week she has had intermittent palpitations andtachycardia which occur several times per day. Wears apple watch and hasreviewed her HR and noted that it has gone up into the 130s with fluttering inchest and one night she work up from a nap and her HR was 190s, though shecouldn't tell at the time. Symptoms last for just seconds and dissipate on own. Has also been having some tightness in her chest which may be worsened duringthe fluttering episodes. Tightness radiates to back between shoulder blades.Has not had radiation to left shoulder or neck. Denies lightheadedness, nausea,sweating, syncope, worsening with exertion, improvement with rest.Past medical history, appointments, medications, allergies reviewed.Previous Medical HistoryPAST MEDICAL HISTORYDiagnosis Date- Benign neoplasm of colon- Blood in stoolPrevious Surgical HistoryPAST SURGICAL HISTORYProcedure Laterality Date- COLONOSCOP W/ OR W/O [facility] SPEC 03/30/2008 Colonoscopy- DANDamp;C, DIAG AND/OR THERAPEUTIC Dilation ANDamp; curettage- EXTRACTION ERUPTED TOOTH/ EXR wisdom teeth- L'SCOPE DX W/WO BRUSHINGS/WASHINGS Laparoscopy- SIGMOIDS DIAG W/REM POLYP HT BX Family HistoryFAMILY HISTORYProblem Relation Age of Onset- Cancer Maternal Grandfather SKIN- Cancer Maternal Grandmother OVARIAN- Stroke Maternal Grandfather- Diabetes Maternal Grandmother- Cancer Paternal Grandmother- Cancer Father ProstatePatient AllergiesALLERGIESAllergen Reactions- Antihistamines Mental Status Change- PeanutsCurrent MedicationsNo current outpatient prescriptions on file prior to visit.No current facility-administered medications on file prior to visit.Social HistorySocial History Marital status: Spouse name: Jose Years of education: 15 Number of children: 2Occupational 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*Social History Main Topics Smoking status: Never Smoker Smokeless status : Never Used Alcohol use: Yes Comment: Rarely Drug use: No Sexual activity: Yes Partners with: Male control/protection: Surgical Comment: vasectomyReview of SymptomsREVIEW OF SYSTEMSSee HPIEXAM:BP 128/90 Pulse 76 Temp 37.3 ?C (99.2 ?F) (Tympanic) Resp 14 Wt 77.1 kg(170 lb) SpO2 97% BMI 29.18 kg/x1Whxiatq Appearance: Well appearing, alert, in no acute distress, well-hydrated,well nourished..Skin: Skin color, texture, turgor normal, no suspicious rashes or lesions.Neck: Supple, no adenopathy; thyroid symmetric, normal size, no bruits.Lungs: Lungs clear to auscultation. No wheezing, rhonchi, rales.Heart: RRR without murmur, gallop, or rubs. No ectopy.Extremities: No deformities, edema, skin discoloration, clubbing or cyanosis.Good capillary refill. .Health Maintenance ListTETANUS due on 01/19/2021MAMMOGRAM due on 07/25PAP EVERY 5 YEARS due on 02/03/2020HPV EVERY 5 YEARS due on 02/03/2020INFLUENZA CompletedEKG: NSR at 73 bpm, possible left atrial enlargement, low voltage QRSASSESSMENT/PLAN:1. Palpitations - ICD9 : 785.1, ICD10: R00.2Normal EKG and exam today. Will obtain blood work and holter monitor as well asCXR due to chest tightness with radiation to back. Will call with results.- ECG COMPLETE W INTERPRETATION- CBC- COMP METABOLIC PANEL- TSH BLD- XR CHEST 2V FRONTAL/LAT- HOLTER MONITOR 48 HOURChristopher Lucrecia Godwin Provider: SELF [200]Allergies As of Date: 04/17/2017 Noted Allergy ReactionANTIHISTAMINES 10/02/2004 1 - Mental Status ChangePEANUTS 08/22/2004Date Reviewed: 04/17/2017Reviewed by: Ramiro Henderson Ma - Fully AssessedReason for Visit: Palpitations [79] Cmt: tachycardiaPrimary Visit Diagnosis:Palpitations [R00.2 ]Order(s):ECG COMPLETE W INTERPRETATION [ECG01] Order #: [id number] FUTURE CBC [SQCBC] Order # : [id number] FUTURE COMP METABOLIC PANEL [SQCMP] Order #: [id number] FUTURE TSH BLD [ SQTSH] Order #: [id number] FUTURE XR CHEST 2V FRONTAL/LAT [[id number]] Order #: [id number] FUTURE HOLTER MONITOR 48 HOUR [[id number]] Order #: [id number] FUTUREProblem List As Of Date Noted Resolved Depressive disorder, not elsewhere classified [*INVALID FOR*04/15/2012 More... Irregular menses [N92.6] INVALID FOR*Disposition: Return in about 3 months (around 07/18/2017).Follow-up and Disposition History RecordedEncounter Number: [id number] Status:Closed by ACOSTA COHN MD on 04/17/17 ALLERGIES ALLERGIES DATE TYPE / NAME / CODE REACTION SEVERITY SOURCE CODE 05/20/2017 Drug Antihistamines - racing heart Unknown [place] Allergy/41 Alkylamine/[id number] rate [facility] 3752169(SN 7(RXNORM) [facility]) Repository 10/02/2004 Drug ANTIHISTAMINES Mental Chg [facility] Class/[address] [facility] [address](SNOM Repository ED CT) 08/22/2004 Food/90812 PEANUTS [facility] 1000(SNOME [facility] D CT) Repository Drug antihistimines/00276 Moderate [place] Allergy/41 512(RXNORM) (Severity [facility] 1675181(SN Modifier) [facility] CT) (Qualifier Repository Value) ENCOUNTERS ENCOUNTERS ADMIT/DISCHARGE ACCOUNT ADMITTING ENCOUNTER LOCATION SOURCE NUMBER CLASS 07/18/2017/07/20/19 [id number] Ambulatory [address] Repository 05/12/2017/05/13/19 [id number] [facility]ER[facility] G[facility] A [facility] Repository 05/10/2017/05/11/19 [id number] [facility] TO[facility]ITO [facility] oom: ERBed: F [facility] Repository 04/22/2017 [id number] Ambulatory [facility] ing:PSN Repository 04/22/2017 [id number] Ambulatory BMSBuilding:W [facility] Repository 04/18/2017/04/18/19 [id number] Ambulatory [address] Repository 04/17/2017/04/18/19 [id number] Ambulatory [address] Repository 04/17/2017/04/18/19 [id number] Ambulatory [address] Repository 04/17/2017/04/23/19 [id number] Ambulatory [address] Repository PAYERS PAYERS ENCOUNTER GUARANTOR PAYER SUBSCRIBER SOURCE 05/12/2017 BELEN RUPALI Primary RUPALI HUMMELDOB: Rubens Castillo HUMMELDOB: Insurance:AULTCARE [id number] [facility] OUTPATIENTPolic[address] Number: [place], [place], [id number] [id number] [place] Date:Plan Name: [id number]: () 05/10/2017 BELEN RUPALI Primary RUPALI HUMMELDOB: Rubens Castillo HUMMELDOB: Insurance:AULTCARE [id number] [facility] Number: [address], Repository [address] [place] [address], [id number] [address] [place] Date:Plan Name: [id number]: () 04/22/2017 BELEN D Primary BELEN Leon [id number] TR Insurance:AULTCAREPoli HUMMELDOB: [address], Number: [email or web address] [address]Tnr: [id number] Repository Date:4554-77-13[address] ) [place], [place] [address]MP: 04/22/2017 Secondary NOT GIVENSHADI Leon Insurance:SELF PAY [facility] Number: Effective Repository Date:2017-04-18 04/22/2017 BELEN D Primary BELEN Rosey Leon [id number] TR Insurance:AULTCAREPoli HUMMELDOB: [address], Number: [id number] [facility] [address]Opn: [id number] Repository Date:[id number] ([address]) [place], [place] [address]NN: 04/22/2017 Secondary NOT GIVENUNK Edward Insurance:SELF PAY [facility]: Effective Repository Date:2017-04-22
== END ==
LOC: SDC 10:26 → LAB 07-25 11:26
PROVIDERS: Anesthesiology; Family Provider Family Medicine; PCP Family Medicine; Visit Provider Urology
DX: Z01.818 Encounter for other preprocedural examination (principal)
CPT/HCPCS: 74018; 81025; J7120; J2405

== ENCOUNTER → 2018-11-03 16:40 | Outpatient (CLI) | payer OTHER, SELFPAY ==
[2017-05-23 10:53] VITALS: BMI 27.6
--- NOTE | 2018-11-03 | COLBX_PTH ---
PATIENT: ISAAC BEJARANO LOC: [facility] U#:[id number] AGE/SX: 49/F ROOM: RE11/03/[address]: Dr. Agusto Romero MD : 1975 BED: DIS: SPEC #: [id number] RECD: 11/03/18 16:05 STATUS: MADDIE MIGUEL ÁNGEL #: [id number] CARLIN: 11/03/18 00:[address]: Agusto Romero DEPT: SURGICAL PATHOLOGY RECD BY: Jitendra Morales ENTERED: 11/04/18 13:25 SP TYPE: COLON BX OTHR DR: Dr. Raul Cohn MD Tissues: Sigmoid colon biopsy Procedures: Surgery Specimen Level IV HEADER OPERATION: Colonoscopy PRE-OP DIAGNOSIS: K62.5, Z86.010, Z80.0 TISSUE SUBMITTED: Sigmoid colon polyp MICROSCOPIC DIAGNOSIS Sigmoid colon polyp, biopsy: Fragments of tubular adenoma. AM:carole 11/05/18 MICROSCOPIC DESCRIPTION Slides are reviewed. GROSS DESCRIPTION Received in fixative is one container labeled with the patient's name and designated sigmoid colon polyp. The specimen consists of multiple irregular fragments of light ch soft tissue that in aggregate measure 1.5 x 0.6 x 0.1 cm. The specimen is totally submitted in one cassette. / SJ:rg 11/04/18 TC:5 CPT: 65440
== END ==
PROVIDERS: Family Provider Family Medicine; PCP Family Medicine; Referring Provider Internal Medicine Gastroenterology; Visit Provider Internal Medicine Gastroenterology
DX: K62.5 Hemorrhage of anus and rectum (principal); Z86.010 Personal history of colon polyps; Z80.0 Family history of malignant neoplasm of digestive organs
CPT/HCPCS: 88305

== ENCOUNTER → 2020-01-28 12:34 | Outpatient (CLI) | payer OTHER, SELFPAY ==
[2020-01-28 09:11] VITALS: BMI 25.6
[2020-02-02 19:38] LABS: HPV APTIMA, High Risk Negative (Negative)
== END ==
PROVIDERS: PCP Family Medicine; Visit Provider Nurse Practitioner Women's Health
DX: Z12.4 Encounter for screening for malignant neoplasm of cervix (principal)
CPT/HCPCS: 87624; 88175; G0145

== ENCOUNTER → 2020-02-20 09:45 | Outpatient (CLI) | payer OTHER, SELFPAY ==
[2020-01-28 09:11] VITALS: BMI 25.6
--- NOTE | 2020-02-20 09:48 | US_ITS ---
STUDY: ULTRASOUND OF THE FEMALE PELVIS - COMPLETE REASON FOR EXAM: Female, 44 years old. MENORRHAGIA -- DYSMENORRHEA LMP: 02/13/2020 TECHNIQUE: Transabdominal and Transvaginal TECHNICAL QUALITY: Adequate. COMPARISON: None. FINDINGS: The uterus is anteverted and is in a midline position. The uterus measures 12.2 x 7.1 x 6.3 cm. Normal uterine cervix. The endometrium measures 11 mm in thickness, and is hyperechoic. There is no demonstrated endometrial mass. 1.8 cm oval hypoechoic mass within the anterior myometrium of the lower uterine segment consistent with an intramural fibroid. 3.4 cm isoechoic mass within the posterior the uterus consistent with fibroid. Other smaller fibroids. I.U.D. - The patient does not have an I.U.D. The right ovary is visualized. The right ovary measures 3.1 x 3.6 x 1.7 cm. There is no right ovarian cyst or ovarian mass. There is no visualized right adnexal mass or complex lesion. There is normal arterial and normal venous vascularity. The left ovary is visualized. The left ovary measures 3.7 x 2.9 x 1.9 cm. There is no left ovarian cyst or ovarian mass. There is no visualized left adnexal mass or complex lesion. There is normal arterial and normal venous vascularity. There is no fluid in the cul-de-sac. The pre void volume of the bladder was ml. The post void volume of the bladder was ml. Polycystic ovary disease: No. US/Pelvic (Non ) IMPRESSION: Enlarged fibroid uterus. Electronically Signed: Rommel Tee MD at 12:12 EST Tel , Service support ,
--- NOTE | 2020-02-20 09:48 | US_ITS ---
STUDY: ULTRASOUND OF THE FEMALE PELVIS - COMPLETE REASON FOR EXAM: Female, 44 years old. MENORRHAGIA -- DYSMENORRHEA LMP: 02/13/2020 TECHNIQUE: Transabdominal and Transvaginal TECHNICAL QUALITY: Adequate. COMPARISON: None. FINDINGS: The uterus is anteverted and is in a midline position. The uterus measures 12.2 x 7.1 x 6.3 cm. Normal uterine cervix. The endometrium measures 11 mm in thickness, and is hyperechoic. There is no demonstrated endometrial mass. 1.8 cm oval hypoechoic mass within the anterior myometrium of the lower uterine segment consistent with an intramural fibroid. 3.4 cm isoechoic mass within the posterior the uterus consistent with fibroid. Other smaller fibroids. I.U.D. - The patient does not have an I.U.D. The right ovary is visualized. The right ovary measures 3.1 x 3.6 x 1.7 cm. There is no right ovarian cyst or ovarian mass. There is no visualized right adnexal mass or complex lesion. There is normal arterial and normal venous vascularity. The left ovary is visualized. The left ovary measures 3.7 x 2.9 x 1.9 cm. There is no left ovarian cyst or ovarian mass. There is no visualized left adnexal mass or complex lesion. There is normal arterial and normal venous vascularity. There is no fluid in the cul-de-sac. The pre void volume of the bladder was ml. The post void volume of the bladder was ml. Polycystic ovary disease: No. US/Transvaginal Non- IMPRESSION: Enlarged fibroid uterus. Electronically Signed: Rommel Tee MD at 12:12 EST Tel , Service support ,
--- NOTE | 2020-02-20 09:48 | BI_ITS ---
MAMMOGRAPHY - BILATERAL SCREENING REASON FOR EXAM: Female, 44 years old. Routine annual screening examination. PERTINENT HISTORY: Non-contributory. TECHNIQUE: Digital bilateral breast ze (3D mammographic acquisition) in the CC and MLO projections. 2-D mediolateral oblique (MLO) and craniocaudad (CC) views of both breasts were obtained. CAD: Full Field Digital Mammography with Computer Added Detection was performed. COMPARISON: Comparison is made with prior abdomen examination dated 10/23/2018. FINDINGS: Breast Composition: The breasts are extremely dense, which lowers the sensitivity of mammography. There are no dominant masses or suspicious calcifications. Stable small benign-appearing bilateral axillary lymph nodes. No other significant abnormalities are identified. There has been no significant change since the prior study. BI/SCREEN MAMM (CAD) W/ZE BILAT IMPRESSION: Stable bilateral screening mammogram. Yearly follow-up mammogram recommended. (A) ASSESSMENT CATEGORY: BIRADS Category 2: Benign. A letter regarding these results will be sent to the patient by the facility within 30 days. Approximately 10% of breast cancers are not detected by mammography. A normal mammogram should not delay biopsy of a clinically suspicious abnormality. [id number] Electronically Signed: Anibal Feliz, at 9:06 EST , Service support ,
== END ==
PROVIDERS: PCP Family Medicine; Referring Provider Nurse Practitioner Women's Health; Visit Provider Nurse Practitioner Women's Health
DX: Z12.31 Encounter for screening mammogram for malignant neoplasm of breast (principal); N92.1 Excessive and frequent menstruation with irregular cycle; N94.6 Dysmenorrhea, unspecified
CPT/HCPCS: 76830; 76856; 77063; 77067

== ENCOUNTER → 2020-02-23 09:36 | Outpatient (CLI) | payer OTHER, SELFPAY ==
--- NOTE | 2020-02-23 | EMB_PTH ---
PATIENT: ISAAC BEJARANO LOC: [facility] #:[id number] AGE/SX: 49/F ROOM: RE02/23/[address]: JASSON [place] : 1975 BED: DIS: SPEC #: [id number] RECD: 02/23/20 15:03 STATUS: MADDIE MIGUEL ÁNGEL #: [id number] CARLIN: 02/23/20 00:[address]: Yuly Barrera NP DEPT: SURGICAL PATHOLOGY RECD BY: Jose Childers ENTERED: 02/24/20 08:50 SP TYPE: ENDOM BX/C RACQUEL DR: Dr. Raul Cohn MD Tissues: Endometrium, NOS Procedures: Surgery Specimen Level IV HEADER OPERATION: Endometrial biopsy PRE-OP DIAGNOSIS: Abnormal uterine bleeding TISSUE SUBMITTED: Endometrial biopsy MICROSCOPIC DIAGNOSIS Endometrial biopsy: Proliferative endometrium with focal glandular breakdown. See comment. CRIS:carole 02/25/2020 COMMENT Rare plasma cells are noted suspicious for mild chronic endometritis. A few fragments of fibrinous material with hyalinization and infiltration with neutrophils are also noted, may represent fragments of polyp. Clinical correlation and appropriate follow up are necessary. Case has been reviewed in consultation with Dr. Shaw who concurs with the above diagnosis. IDC:AM MICROSCOPIC DESCRIPTION Slides are reviewed. GROSS DESCRIPTION Received is one container labeled with the patient's name and not further designated. The specimen consists of multiple irregular and elongated fragments of red-ch soft tissue that in aggregate measure 2 x 1.7 x 0.2 cm. The specimen is totally submitted in one cassette. / AM:carole 02/24/20 TC:5 CPT: 05092
[2020-02-23 09:10] VITALS: BMI 25.7
[2020-02-23 10:09] LABS: Absolute Lymphocyte Count 1.36 X10^3/uL (0.83-4.51); Absolute Neutrophil Count 2.8 X10^3/uL (2.0-7.7); Basophil# 0.04 X10^3/uL; Basophil% 0.8 % (0-1); Eosinophil# 0.07 X10^3/uL; Eosinophils% 1.4 % (0-5); Hematocrit 35.4 % (37-47); Hemoglobin 11.8 g/dL (12.0-15.0); Lymphocyte # 1.36 X10^3/ul (4.0); Lymphocyte % 28.1 % (19-41); Mean Corp Hgb Conc 33.3 g/dL (32-36); Mean Corpuscular Hgb 29.3 pg (27.0-32.0); Mean Corpuscular Volume 87.8 fL (81-99); Mean Platelet Vol. 11.5 fl (6.2-12.0); Monocyte# 0.57 X10^3/uL; Monocyte% 11.8 % (0-10); NRBC Flagged by Analyzer 0 % (0-5); Neutrophil # 2.78 X10^3/uL (2.7-7.7); Neutrophil % 57.5 % (47-70); Platelet Count 275 K/mm3 (150-450); RBC Distribution Width CV 14.5 % (11.6-14.6); RBC Distribution Width SD 46.3 fl (35.1-43.9); Red Blood Count 4.03 M/mm3 (4.2-5.4); White Blood Count 4.8 K/mm3 (4.4-11.0)
[2020-02-23 10:35] LABS: Thyroid Stim Hormone (TSH) 2.77 uIU/mL (0.358-3.74)
== END ==
PROVIDERS: PCP Family Medicine; Referring Provider Nurse Practitioner Women's Health; Visit Provider Nurse Practitioner Women's Health
DX: N92.1 Excessive and frequent menstruation with irregular cycle (principal); R53.83 Other fatigue; Z13.29 Encounter for screening for other suspected endocrine disorder
CPT/HCPCS: 36415; 84443; 85025; 88305

== ENCOUNTER 2020-04-05 06:57 | Day surgery (SDC) | payer OTHER, SELFPAY ==
[2020-03-10 10:48] VITALS: BMI 25.9
[2020-03-11 13:23] VITALS: BMI 25.9
[2020-04-05] VITALS (12 sets, daily range): BP systolic 89–116; BP diastolic 50–73; PULSE 59–93; RESP 12–18; TEMP 36.4–37.3; O2SAT 97–100; BMI 26.2
[2020-04-05] MEDS: dexAMETHasone 10 MG/ML Vial 8 MG IV (07:00)
--- NOTE | 2020-04-05 07:27 | PCM.HPOB.BLA ---
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: No Is patient in pain?: No Allergies Antihistamines - Alkylamine Adverse Reaction (Verified 03/10/20 10:48) racing heart rate Medications allergy shots PO 01/28/20 [History Confirmed 03/10/20] ascorbate calcium (vitamin C) 500 mg tablet 500 mg PO DAILY 01/28/20 [History Confirmed 03/10/20] cholecalciferol (vitamin D3) 50 mcg (2,000 unit) capsule 50 mcg PO DAILY 01/28/20 [History Confirmed 03/10/20] plexis PO 01/28/20 [History Confirmed 03/10/20] zinc 50 mg tablet 50 mg PO DAILY 01/28/20 [History Confirmed 03/10/20] levonorgestrel-ethinyl estradiol 0.1 mg-20 mcg tablet 1 tab PO QDAY #28 tab 02/23/20 [Rx Confirmed 03/10/20] Post menopausal: No Patient : No : No PFSH Surgical History H/O dilation and curettage (Acute) H/O endoscopy (Acute) Family History Father Prostate cancer Grandmother Ovarian cancer Social History (Updated 03/10/20 @ 13:[address] Rosemarie Alcocer MD) household members: spouse, children number of children: 2 current occupational status: employed current occupation: [employer] history of recent travel: Yes sexually active: Yes Smoking Status: Never smoker alcohol intake: current alcohol intake frequency: a few times a month substance use type: does not use diet: low carbohydrate what type of physical activity do you participate in: walking, running, weight training seatbelt use: always do you feel safe at home: Yes additional social history: - Jose [facility] surgery consult: Details: ISAAC BEJARANO is a 44 year old who presents for AUB. Has tried using scheduled advil. Soaks through tampon every 30min to 1 hour. Last 6-7 days and debilitating the first few days. Pain feels like childbirth the first few days due to severe pain and cramping. Occur every 2-4 weeks. Reports pelvic fullness and discomfort. Pregancy History 2 Elective abortions Hx Para 2 Spontaneous abortions Hx # Term Pregnancies Ectopic pregnancies Hx # Pregnancies Multiple births # of living children 2 Past Pregnancies Del. Date Name GA/Weeks Outcome Route Bth Weight Gen Labor Lgth Anesthesia Del Locatn Provider FOB Unknown Christiano 1999 Unknown Sophie 2002 ROS Const Constitutional: Reports system reviewed and no additional complaints, except as docu; denies chills or fever(s) Eyes Eyes: Reports system reviewed and no additional complaints, except as docu ENT ENT: Reports system reviewed and no additional complaints, except as docu Cardio Card: Reports system reviewed and no additional complaints, except as docu; denies chest pain, leg swelling or rapid, pounding, or irregular heartbeat Resp Resp: Reports system reviewed and no additional complaints, except as docu; denies dyspnea GI GI: Reports system reviewed and no additional complaints, except as docu; denies constipation, nausea or vomiting : Reports system reviewed and no additional complaints, except as docu, heavy periods, metrorrhagia and pelvic pain; denies painful urination, urinary frequency, urinary hesitancy, urinary urgency, vaginal discharge, vaginal odor or vaginal itching Musc Musc: Reports system reviewed and no additional complaints, except as docu Skin Skin/Breast: Reports system reviewed and no additional complaints, except as docu Neuro Neuro: Reports system reviewed and no additional complaints, except as docu Psych Psych: Reports system reviewed and no additional complaints, except as docu Endo Endo: Reports system reviewed and no additional complaints, except as docu Exam Const General: cooperative, healthy appearing, comfortable, well developed, well groomed Neck Neck: normal visual inspection, full ROM Resp Effort & Inspection: normal respiratory effort, able to speak in complete sentences, symmetric chest movement Cardio Rate: regular rate General: bladder normal to palpation External Female Exam: normal external appearance, normal appearance of the urethra, no erythema, no tenderness externally, no lesions, No lesion of urethra Urethra: normal appearance of the urethra, no lesions Speculum Exam - Cervix: nontender Bimanual Exam- Vagina & Uterus: normal bimanual exam, normal vaginal palpation, bladder normal to palpation, No cervical tenderness, uterine mobility normal, uterine consistency normal, normal cervical palpation, uterus non-tender, uterus enlarged (12 week size), uterus tender (mildly) Bimanual Exam- Adnexa, other: normal adnexae, adnexae mobile, no adnexal masses, pelvic support normal, adnexae non-tender, No cul-de-sac fullness, No cul-de-sac tenderness, No cul-de-sac nodularity, apex supported Recto-Vaginal: no cul-de-sac fullness, no cul-de-sac tenderness, no cul-de-sac nodularlity Pelvic Support: normal, apex supported Skin General: no rashes or lesions noted, elasticity normal, turgor normal Lesions: no lesions Rashes: no rashes Neuro General: alert, awake, oriented x3 Cranial Nerves: CN's II-XI intact bilaterally, PERRL, EOM intact bilaterally Cognition: normal cognition Speech: speech normal Gait: normal gait Extrem General: normal to inspection, full ROM, no pedal edema Psych Appearance: grossly normal Mental Status: mental status grossly normal Mood: congruent mood Affect: normal affect Speech and Movement: speech and movement normal Attitude: cooperative Thought Process: normal Thought Content: normal Assessment & Plan 1. Menorrhagia with irregular cycle N92.1 Plan Patient presents for discussion of management options for heavy menstrual bleeding. Ultrasound shows uterus measuring 12.2 x 7.1 x 6.3 cm with multiple fibroids. Had EMB which was negative for malignancy and did show polypoid tissue Discussed with patient that management options include medication to regulate bleeding, D&C to treat polyp, ablation, and hysterectomy. Patient also has significant bulk symptoms with pelvic fullness and pressure. Discussed that medication and D&C are unlikely to alleviate this Patient desires definitive surgical management with hysterectomy. Uterus 12 weeks in size on ultrasound and exam. Recommend robotic hysterectomy. Risks, benefits, indications, and alternatives to the procedure were discussed with the patient including bleeding, infection, and visceral or vascular injury. Discussed the possibility of excessive blood loss due to vascular injury or bleeding with fibroid uterus. Patient is agreeable to blood transfusion if medically necessary. Discussed the possibility of infection at the incision sites, inside the abdomen, or at the vaginal cuff. Discussed that this could require repeat hospitalization or reoperation. We discussed the possibility of damage to surrounding structures. Discussed the possibility of injury to bowel, bladder, or ureters. Discussed that if 1 of these injuries was identified at the time of the procedure, we would consider an intraoperative consult with general surgery or urology. Discussed the possibility of delayed diagnosis of bowel, bladder, or ureteral injury, and that this could require hospitalization after discharge. Patient is aware that in the event of injury to bowel bladder, bladder, or ureters she could require additional surgical interventions. Discussed that I would recommend cystoscopy at the time of surgery in order to evaluate integrity of the ureters. We discussed the possibility that the hysterectomy might not be able to be completed in a minimally invasive manner, and that this would require a larger incision on her abdomen and admission to the hospital. We discussed the risks and benefits of oophorectomy at the time of hysterectomy. Plan for ovarian conservation as long as ovaries appear grossly normal. Plan to proceed with robotic total laparoscopic hysterectomy, bilateral salpingectomy, possible bilateral salpingoophorectomy, cystoscopy UPDATE- I have seen the patient and performed any clinically relevant updates to the history and physical exam. Rosemarie Alcocer MD
[2020-04-05 07:47] LABS: Internal QC Validated? YES +Cl - CLEAR BKGD; Pregnancy, Urine Negative Negative
[2020-04-05] MEDS: Gabapentin 600 MG Tablet PO (08:09)
[2020-04-05] MEDS: Scopolamine 1mg/72hr Patch 1 PATCH TD (08:10)
[2020-04-05] MEDS: Acetaminophen 500 MG Tablet 1000 MG PO (08:10)
[2020-04-05] MEDS: Phenazopyridine 95 MG Tablet 190 MG PO (08:10)
[2020-04-05] MEDS: Celecoxib 200 MG Capsule 400 MG PO (08:10)
[2020-04-05] MEDS: Lactated Ringers 1,000 ML 40 ML IV (08:12)
[2020-04-05 08:18] LABS: Absolute Lymphocyte Count 1.47 X10^3/uL (0.83-4.51); Absolute Neutrophil Count 3.2 X10^3/uL (2.0-7.7); Basophil# 0.05 X10^3/uL; Basophil% 0.9 % (0-1); Eosinophil# 0.09 X10^3/uL; Eosinophils% 1.6 % (0-5); Hematocrit 34.3 % (37-47); Hemoglobin 10.5 g/dL (12.0-15.0); Lymphocyte # 1.47 X10^3/ul (4.0); Lymphocyte % 26.6 % (19-41); Mean Corp Hgb Conc 30.6 g/dL (32-36); Mean Corpuscular Hgb 26.8 pg (27.0-32.0); Mean Corpuscular Volume 87.5 fL (81-99); Mean Platelet Vol. 11.5 fl (6.2-12.0); Monocyte# 0.72 X10^3/uL; NRBC Flagged by Analyzer 0 % (0-5); Neutrophil # 3.18 X10^3/uL (2.7-7.7); Neutrophil % 57.5 % (47-70); Platelet Count 217 K/mm3 (150-450); RBC Distribution Width CV 13.7 % (11.6-14.6); RBC Distribution Width SD 43.9 fl (35.1-43.9); Red Blood Count 3.92 M/mm3 (4.2-5.4); White Blood Count 5.5 K/mm3 (4.4-11.0)
[2020-04-05 08:28] LABS: Magnesium 2.3 mg/dL (1.6-2.6)
--- NOTE | 2020-04-05 08:53 | OP.PCM_ITS ---
Problem List (1) Menorrhagia with irregular cycle Status: Acute (2) Uterine fibroid Status: Acute Qualifiers: Comment: OCP Report of Operation Date of Procedure: 04/05/20 Pre-Operative Diagnosis: AUB, fibroid uterus Post-Operative Diagnosis: Same Surgery/Procedure Performed:: Robotic assisted total laparoscopic hysterectomy, bilateral salpingectomy, cystoscopy Description of Surgical Findings:: Uterus globally enlarged. Normal appearing tubes and ovaries bilaterally. group art supervisor: Tj Jara Type of Anesthesia:: General Special Medications: Pyridium pre-op Specimen's removed: Uterus, cervix, bilateral fallopian tubes Estimated Blood Loss (mL): 50 Fluids Replaced: 1800 Description of Procedure: The patient was taken to the operating room where general anesthesia was obtained without difficulty. She was prepped and draped in the dorsolithotomy position with yellowfin stirrups. Weighted speculum was placed in the posterior aspect of the vagina and the anterior lip of the cervix was grasped with a single-tooth tenaculum. The cervix was sequentially dilated in order to accommodate a Aventicular uterine manipulator. Gloves were changed and attention was directed to the abdominal cavity. A 5 mm incision was made in the left upper quadrant and the varies needle was inserted without difficulty. The abdomen was insufflated. The Veress needle was removed and a 5 mm Optiview port was placed under direct visualization. Intra-abdominal placement was confirmed. 8 mm incisions were made in the right and left lower quadrants and approximately 2 fingerbreadths above the umbilicus and robotic ports were placed. A 5 mm accessory port was placed in the right upper quadrant. Findings were as listed above. The patient was placed in steep Trendelenburg positioning and the bowel was displaced superiorly. The da Wiley robot was subsequently docked without any complications.the bilateral fallopian tubes were elevated and grasped. The mesosalpinx was cauterized and transected bilaterally. The fallopian tubes were amputated at the cornual region and removed through the accessory port. The utero-ovarian ligaments were identified bilaterally.. These were cauterized and transected with the bipolar cautery and the EndoShears. This was followed by the round ligament, which was cauterized and transected in a similar fashion. The anterior leaf of the broad ligament was entered and the bladder flap dissected off of the lower uterine segment and cervix without complications. The uterine arteries bilaterally were skeletonized, cauterized, and transected. At this time, the uterus was blanched effectively demonstrating that the blood supply to the uterus had been terminated. The colpotomy cup was made with the monopolar scissors and carried around the entire cervicovaginal junction until the cervix and uterus were released from its moorings to the vagina. The cervix and uterus were removed from the abdominal cavity through the vagina. A pneumooccluder was then placed in the vagina. The cuff was then closed in a running fashion using 0-V-Loc suture. The abdomen was copiously irrigated, cleared of all clots and debris, and the pedicles were examined and noted to be hemostatic. Occluder was then removed from the vagina. Attention was then directed to the pelvis to perform a cystoscopy. Chavira catheter was removed and the cystoscope was introduced into the bladder. The bladder was inspected and no evidence of trauma was noted. Vigorous spill was noted bilaterally from the ureters. The cystoscope was then removed from the bladder. Gloves were changed and all the instruments were subsequently removed from the patient?s abdomen and vagina. The five skin incisions were closed with #4-0 Monocryl for excellent hemostasis and reapproximation. All counts were correct x2. The patient was awakened and taken to the recovery room in stable condition. - Complications None - Admit VTE Documentation VTE Present on Admission: No VTE Mechan Device Prophylaxis: SCD's VTE Pharm Prophylaxis ordered?: No Multi Select Codes - Urinary/Genital Urinary/Genital CPT Codes: 53884 TLH+BS/O >250gr uterus - robotic assisted
--- NOTE | 2020-04-05 08:56 | PCM.DC.AHY ---
Discharge Diet: No Restrictions Discharge Activity: Return to Normal Activity, May Not Drive - while taking narcotic pain medications., May Shower May resume sexual activity in: 6-8 weeks Call your doctor if your incision/area has: Continuous Slow Oozing, Sudden Increased Bleeding, Increased Pain/ Swelling, Increased Redness, Foul Smelling Discharge Call your doctor if you observe: Fever of 101 or Higher, Inability to urinate, Inability to have a bowel movement, Using more than one pad per hour Suture Line Care: Avoid Pulling/Pushing Cleanse incision/area with: Soap & Water Additional Dressing/Incision Instructions:: Remove dressings after 7-10 days Additional Instructions: Take alternating scheduled Motrin 800 mg every 8 hours and Tylenol 1000 mg every 8 hours for at least first 3 days for pain. Use oxycodone for breakthrough pain. Allergies/Adverse Reactions: Allergies peanut Allergy (Verified 04/05/20 07:56) Angioedema Antihistamines - Alkylamine Adverse Reaction (Verified 04/05/20 07:56) racing heart rate Medications to take at Discharge ascorbate calcium (vitamin C) 500 mg tablet 1,000 mg PO DAILY 01/28/20 cholecalciferol (vitamin D3) 50 mcg (2,000 unit) capsule 125 mcg PO DAILY 01/28/20 plexis 1 pkt PO DAILY 01/28/20 zinc 50 mg tablet 50 mg PO DAILY 01/28/20 Plexus Biocleanse 2 cap PO DAILY 03/29/20 Plexus Metaburn 1 cap PO BID 03/29/20 Plexus Probiotic 1 cap PO DAILY 03/29/20 Orders to be completed after discharge: Type & Screen - PAT ONLY Time Frame: 04/05/20, Facility: [facility], Location: Laboratory Primary Care Physician: Raul Cohn MD [Primary Care Provider] - Test Results: Test results from this visit will be discussed in further detail at your follow-up appointment, if applicable. Please Follow Up With: Rosemarie Alcocer MD When: 2 weeks
--- NOTE | 2020-04-05 09:05 | HYST_PTH ---
PATIENT: ISAAC BEJARANO LOC: [facility] [place] U#:[id number] AGE/SX: 44/F ROOM: RE04/05/[address]: Dr. Rosemarie Alcocer MD : 1975 BED: DIS: 04/05/2020 SPEC #: [id number] RECD: 04/05/20 13:01 STATUS: MADDIE DEL ROSARIO #: [id number] CARLIN: 04/05/20 09:[address]: Rosemarie Alcocer DEPT: SURGICAL PATHOLOGY RECD BY: Kelsea Osorio ENTERED: 04/05/20 13:33 SP TYPE: HYSTERECT OTHR DR: Dr. Raul Cohn MD Tissues: Uterus, NOS Procedures: Surgery Specimen Level V HEADER OPERATION: ERAS, lap robotic hysterectomy, salpingectomy, cystoscopy PRE-OP DIAGNOSIS: Menorrhagia with irregular cycle TISSUE SUBMITTED: Uterus, cervix and bilateral fallopian tubes MICROSCOPIC DIAGNOSIS Uterus, hysterectomy: Cervix - mild chronic inflammation. Endometrium - secretory endometrium. Myometrium - leiomyomas and focal superficial adenomyosis. Right and left fallopian tubes - benign paratubal cysts. AM:carole 04/06/20 MICROSCOPIC DESCRIPTION Slides are reviewed. GROSS DESCRIPTION Received in fixative is one container labeled with the patient's name and designated uterus, cervix and bilateral fallopian tubes. The specimen consists of a hysterectomy specimen consisting of uterus with cervix and detached bilateral fallopian tubes. The uterus with cervix weighs 307 gm and measures 13 x 10 x 8 cm. The serosal surface is ch, glistening. The ectocervical mucosa is unremarkable. The external os is oval and patulous in contour. The endocervical canal measures 3 cm in length and the endocervical mucosa is ch, glistening and unremarkable. The triangular endometrial cavity measures 6 cm in length and up to 3.5 cm in width. The endometrium is ch, glistening without any mass lesion and measures up to 0.5 cm in thickness. Sections of the uterine wall reveal multiple intramural and submucosal nodular masses. The largest mass is submucosal and measures up to 3 cm in greatest dimension. Sections of these masses reveal ch whorled cut surfaces without areas of hemorrhage, necrosis or cystic degeneration. The uninvolved uterine wall measures up to 3.5 cm in thickness. Sections of the uterine wall reveal trabeculated cut surfaces suspicious for adenomyosis. The fallopian tubes are not identified as right or left. One of the fallopian tubes measure 6 cm in length and 0.7 cm in diameter. The fimbrial end is identified. Two paratubal cysts are noted measuring 1 and 1.5 cm in greatest dimension. Sections of the fallopian tube reveal unremarkable cut surfaces. The paratubal cysts are filled with clear fluid. The second fallopian tube measures 6 cm in length and 0.5 cm in diameter. It is similar appearance to the first one. A paratubal cyst is noted measuring 1 cm in greatest dimension. It is filled with clear fluid. Atm Technician sections are submitted in ten cassettes as follows: 1 - anterior cervix, 2 - posterior cervix, 3 & 4 - anterior uterine wall, 5 & 6 - posterior uterine wall, 7 - largest submucosal nodular mass, 8 - smaller nodular masses, 9 - one fallopian tube and paratubal cyst, 10??fallopian tube and paratubal cyst. / CRIS:carole 04/05/20 TC:1 CPT: 16783
[2020-04-05 09:21] LABS: Bedside Glucose 71 mg/dL (70-110)
[2020-04-05] MEDS: Cefazolin 2 GM in 0.9% Normal Saline 100 ML IV (09:30)
[2020-04-05] MEDS: Lactated Ringers 1,000 ML 70 ML IV ×2 (10:16→11:31)
[2020-04-05] MEDS: Ropivacaine 0.5% 30 ML Vial (10:20)
[2020-04-05] MEDS: Ondansetron 4 MG/2 ML Vial IV (12:00)
== END 2020-04-05 17:25 | disposition home or self-care (01) ==
LOC: SDC 06:57 → AC 06:57
PROVIDERS: Anesthesiology; PCP Family Medicine; Referring Provider Obstetrics & Gynecology; Visit Provider Obstetrics & Gynecology
PROC: 0UT94ZZ Resection of Uterus, Percutaneous Endoscopic Approach (ICD-10-PCS; CPT 58573; principal; 2020-04-05 08:45)
DX: N92.1 Excessive and frequent menstruation with irregular cycle (principal); D25.9 Leiomyoma of uterus, unspecified; N83.8 Other noninflammatory disorders of ovary, fallopian tube and broad ligament; Z20.828 Contact with and (suspected) exposure to other viral communicable diseases; Z79.899 Other long term (current) drug therapy
CPT/HCPCS: 00940; 58573; S2900; 81025; 82962; 83735; 85025; 86850; 86900; 86901; 87426; 88307; C9803; J7120; J2405

== ENCOUNTER → 2020-06-15 12:27 | Outpatient (CLI) | payer OTHER, SELFPAY ==
[2020-06-15 08:29] VITALS: BMI 25.7
== END ==
PROVIDERS: PCP Family Medicine; Referring Provider Nurse Practitioner Women's Health; Visit Provider Nurse Practitioner Women's Health
DX: N94.9 Unspecified condition associated with female genital organs and menstrual cycle (principal)
CPT/HCPCS: 87070; 87205

== ENCOUNTER 2021-02-22 11:57 | Outpatient (CLI) | payer OTHER, SELFPAY ==
[2020-05-17 09:07] VITALS: BMI 25.7
--- NOTE | 2021-02-22 11:59 | BI_ITS ---
MAMMOGRAPHY - BILATERAL SCREENING REASON FOR EXAM: Female, 45 years old. Routine annual screening examination. PERTINENT HISTORY: Non-contributory. TECHNIQUE: Digital bilateral breast ze (3D mammographic acquisition) in the CC and MLO projections. 2-D mediolateral oblique (MLO) and craniocaudad (CC) views of both breasts were obtained. CAD: Full Field Digital Mammography with Computer Added Detection was performed. COMPARISON: Comparison is made with prior study dated 02/20/2020. FINDINGS: Breast Composition: The breasts are extremely dense, which lowers the sensitivity of mammography. There are no dominant masses or suspicious calcifications. Stable small benign-appearing bilateral axillary lymph nodes. No other significant abnormalities are identified. There has been no significant change since the prior study. BI/SCRN MAMM (CAD)W/ZE BILAT IMPRESSION: Stable bilateral screening mammogram. Yearly follow-up mammogram recommended. (A) ASSESSMENT CATEGORY: BIRADS Category 2: Benign. A letter regarding these results will be sent to the patient by the facility within 30 days. Approximately 10% of breast cancers are not detected by mammography. A normal mammogram should not delay biopsy of a clinically suspicious abnormality. [id number] Electronically Signed: Anibal Feliz MD at 13:03 EST , Service support ,
== END 2021-02-22 23:59 | disposition short-term general hospital (02) ==
LOC: OPBI 11:57
PROVIDERS: PCP Family Medicine; Referring Provider Nurse Practitioner Women's Health; Visit Provider Nurse Practitioner Women's Health
DX: Z12.31 Encounter for screening mammogram for malignant neoplasm of breast (principal)
CPT/HCPCS: 77063; 77067

== ENCOUNTER → 2021-10-20 | Outpatient (CLI) | payer OTHER, SELFPAY ==
--- NOTE | 2021-10-20 09:20 | COLBX_PTH ---
PATIENT: ISAAC BEJARANO LOC: [facility] U#:[id number] AGE/SX: 46/F ROOM: RE10/20/[address]: Dr. Jojo Shelton MD : 1975 BED: DIS: 10/20/2021 SPEC #: [id number] RECD: 10/20/21 14:59 STATUS: MADDIE REElizabeth #: [id number] CARLIN: 10/20/21 09:[address]: Jojo Shelton DEPT: SURGICAL PATHOLOGY RECD BY: Kelsea Osorio ENTERED: 10/23/21 08:36 SP TYPE: COLON BX OTHR DR: Dr. Raul Cohn MD Tissues: Cecum, NOS Procedures: Surgery Specimen Level IV HEADER OPERATION: Colonoscopy PRE-OP DIAGNOSIS: History of polyps TISSUE SUBMITTED: Cecal polyp MICROSCOPIC DIAGNOSIS Cecal polyp, biopsy: Tubular adenoma. CRIS:carole 10/24/2021 MICROSCOPIC DESCRIPTION Slides are reviewed. GROSS DESCRIPTION Received in fixative is one container labeled with the patient's name and designated cecal polyp. The specimen consists of one irregular fragment of light ch soft tissue that measures 0.2 x 0.2 x 0.1 cm. The specimen is totally submitted in one cassette. / SJ:carole 10/23/2021 TC:1 CPT: 16116
== END | disposition home or self-care (01) ==
LOC: LABSPEC 15:41
PROVIDERS: PCP Family Medicine; Visit Provider Surgery
DX: Z86.010 Personal history of colon polyps (principal)
CPT/HCPCS: 88305

== ENCOUNTER → 2022-03-09 | Outpatient (CLI) | payer OTHER, SELFPAY ==
--- NOTE | 2022-03-09 09:48 | BI_ITS ---
MAMMOGRAPHY - BILATERAL SCREENING REASON FOR EXAM: Female, 46 years old. Routine annual screening examination. PERTINENT HISTORY: Non-contributory. TECHNIQUE: Digital bilateral breast ze (3D mammographic acquisition) in the CC and MLO projections. 2-D mediolateral oblique (MLO) and craniocaudad (CC) views of both breasts were obtained. CAD: Full Field Digital Mammography with Computer Added Detection was performed. COMPARISON: Comparison is made with prior study dated 02/22/2021 and 02/20/2020. FINDINGS: Breast Composition: The breasts are extremely dense, which lowers the sensitivity of mammography. There are no dominant masses or suspicious calcifications. Stable small benign appearing bilateral axillary lymph nodes. No other significant abnormalities are identified. There has been no significant change since the prior study. BI/SCRN MAMM (CAD)W/EZ BILAT IMPRESSION: Stable bilateral screening mammogram. Yearly follow-up mammogram recommended. (A) ASSESSMENT CATEGORY: BIRADS Category 2: Benign. A letter regarding these results will be sent to the patient by the facility within 30 days. Approximately 10% of breast cancers are not detected by mammography. A normal mammogram should not delay biopsy of a clinically suspicious abnormality. [id number] Electronically Signed: Anibal Feliz MD at 10:46 EST ,
== END | disposition home or self-care (01) ==
LOC: OPBI 09:42
PROVIDERS: PCP Family Medicine; Visit Provider Nurse Practitioner Women's Health
DX: Z12.31 Encounter for screening mammogram for malignant neoplasm of breast (principal)
CPT/HCPCS: 77063; 77067

== ENCOUNTER → 2023-03-18 | Outpatient (CLI) | payer OTHER, SELFPAY ==
--- NOTE | 2023-03-18 12:06 | BI_ITS ---
MAMMOGRAPHY - BILATERAL SCREENING REASON FOR EXAM: Female, 47 years old. Routine annual screening examination. PERTINENT HISTORY: Non-contributory. TECHNIQUE: Digital bilateral breast ze (3D mammographic acquisition) in the CC and MLO projections. 2-D mediolateral oblique (MLO) and craniocaudad (CC) views of both breasts were obtained. CAD: Full Field Digital Mammography with Computer Added Detection was performed. COMPARISON: Comparison is made with prior study dated March 09, 2022 and February 22, 2021. FINDINGS: Breast Composition: The breasts are extremely dense, which lowers the sensitivity of mammography. There are no dominant masses or suspicious calcifications. No other significant abnormalities are identified. There has been no significant change since the prior study. BI/SCRN MAMM (CAD)W/ZE BILAT IMPRESSION: Stable bilateral screening mammogram. Yearly follow-up mammogram recommended. (A) ASSESSMENT CATEGORY: BIRADS Category 1: Negative. A letter regarding these results will be sent to the patient by the facility within 30 days. Approximately 10% of breast cancers are not detected by mammography. A normal mammogram should not delay biopsy of a clinically suspicious abnormality. [id number] Electronically Signed: Anibal Feliz MD at 12:36 EST ,
--- OUTSIDE RECORDS SUMMARY | 2023-03-18 12:28 | XMS RPT_ITS | CCD ---
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 Name Role Phone Lalit IZAGUIRRE, Acosta Choi Primary Care Provider JOJO SHELTON Referring Unavailable JOJO SHELTON Attending Unavailable ACOSTA COHN Primary Care UnavailACOSTA Stewart Primary Care UnavailAGUSTO Townsend Referring Unavailable JOJO SHELTON Attending ADITYA Hurd Attending Unavailable ADITYA GONCALVES Consulting Unavailable ADITYA GONCALVES Primary Care Unavailable ADITYA GONCALVES Admitting Unavailable PROVIDER, UNKNOWN Consulting Unavailable Allergies Allergy Classification Reported Allergen(s) Allergy Type Date of Onset Reaction(s) Facility (5 sources) Antihistamines; Translations: [ANTIHISTAMINES] Propensity to adverse reactions 10-03-19 05 Mental Status Change [facility] Work Phone: (5 sources) peanut; Translations: [PEANUTS] Food Allergy 08-23-19 05 Swelling [facility] Work Phone: (1 source) antihistimines Drug allergy (disorder) [facility] Repository Medications Completed/Discontinued Medications Medication Drug Class(es) Dates Sig (Normalized) Sig (Original) [id number] 200 actuat albuterol 0.09 mg/actuat metered dose inhaler (3 sources) beta2-Adrenergic Agonist Start: 12-17-2018 End: 10-27-2021 take 1-2 puff(s) by mouth every four to six hours as needed albuterol HFA (PROVENTIL HFA, VENTOLIN HFA) 90 mcg/actuation inhaler INHALE 1 TO 2 PUFFS BY MOUTH EVERY 4 TO 6 HOURS NEEDED FOR SHORTNESS OF BREATH 0 12/17/2018 10/27/2021 Discontinued Problems Problem Classification Problem Date Documented Da te Episodic/Chronic Allergic reactions (4 sources) Solar degeneration; Translations: [Other skin changes due to chronic exposure to nonionizing radiation] 01-20-2018 Episodic Menstrual disorders (4 sources) Irregular periods; Translations: [Irregular menstruation, unspecified] Onset: 04-15-2012 04-15-2012 Chronic Other and unspecified benign neoplasm (2 sources) History of polyp of colon; Translations: [Personal history of colonic polyps] Episodic Other and unspecified benign neoplasm (1 source) Personal history of colonic polyps; Translations: [History of colonic polyps] Onset: 10-20-2021 Episodic Other screening for suspected conditions (not mental disorders or infectious disease) (5 sources) Patient encounter status; Translations: [Encounter for screening for malignant neoplasm of colon] Onset: 10-20-2021 Episodic Results Test Name Value Interpretation Reference Range Facil ity Vital Signs Date Time Vital Sign Value Performing Clinician Faci lity 10-20-2021 10:10-0400 Diastolic blood pressure 71 mm[Hg] Jojo Shelton MD Work Phone: [facility] 10-20-2021 10:10-0400 Heart rate 75 /min Jojo Shelton MD Work Phone: [facility] 10-20-2021 10:10-0400 Respiratory rate 16 /min Jojo Shelton MD Work Phone: [facility] 10-20-2021 10:10-0400 SaO2% (BldA) [Mass fraction] 100 % Jojo Shelton MD Work Phone: [facility] 10-20-2021 10:10-0400 Systolic blood pressure 110 mm[Hg] Jojo Shelton MD Work Phone: [facility] 10-20-2021 08:42-0400 Body temperature 97.7 [degF] Jojo Shelton MD Work Phone: [facility] 10-20-2021 08:42-0400 Body weight 72.2 kg Jojo Shelton MD Work Phone: [facility] 09-12-2021 09:14-0400 Body height 165.1 cm Jojo Shelton MD Work Phone: [facility] 09-12-2021 09:140400 Body weight 72.21 kg Jojo Shelton MD Work Phone: [facility] 09-12-2021 09:14-0400 Diastolic blood pressure 82 mm[Hg] Jojo Shelton MD Work Phone: [facility] 09-12-2021 09:14-0400 Heart rate 94 /min Jojo Shelton MD Work Phone: [facility] 09-12-2021 09:140400 SaO2% (BldA) [Mass fraction] 100 % Jojo Shelton MD Work Phone: [facility] 09-12-2021 09:140400 Systolic blood pressure 110 mm[Hg] Jojo Shelton MD Work Phone: [facility] Encounters Encounter Date Encounter Type Care Provider Facility Start: 07-11-2022 End: 07-11-2022 ambulatory [facility] Start: 11-01-2021 Telephone encounter Jojo Monteiro MD Work Phone: General Surgery Procedures Date Procedure Procedure Detail Performing Clinician Start: 10-20-2021 Colonoscopy flx dx w /collj spec when pfrmd Jojo Shelton MD Work Phone: Start: 10-20-2021 Colonoscopy Jojo Shelton MD Work Phone: Start: 02-22-2021 Mammography Jojo Shelton MD Work Phone: Start: 11-03-2018 Colonoscopy Jojo Shelton MD Work Phone: Start: 10-17-2018 Adult depression scr eening assessment Jojo Shelton MD Work Phone: Plan of Treatment Date Care Activity Detail Author Start: 07-19-2027 Urine microalbumin profile DTAP,TDAP,TD (3 - Td or Tdap) [facility] Start: 10-20-2026 Colonoscopy COLONOSCOPY [facility] Start: 10-20-2026 COLORECTAL CANCER SCREENING COLORECTAL CANCER SCREENING [facility] Start: 10-20-2024 Colonoscopy COLONOSCOPY [facility] Start: 10-20-2024 COLORECTAL CANCER SCREENING COLORECTAL CANCER SCREENING [facility] Start: 02-22-2022 Mammography MAMMOGRAM [facility] Start: 12-22-2021 DIABETES SCREEN DIABETES SCREEN [facility] Start: 11-03-2021 Colonoscopy COLONOSCOPY [facility] Start: 11-03-2021 COLORECTAL CANCER SCREENING COLORECTAL CANCER SCREENING [facility] Start: 10-12-2021 Influenza vaccination INFLUENZA (#1) [facility] Start: 02-07-2021 COVID-19 VACCINE (4 - Booster) COVID-19 VACCINE (4 - Booster) [facility] Start: 03-15-2020 LIPID SCREEN LIPID SCREEN [facility] Start: 02-03-2020 HPV TESTING HPV TESTING [facility] Start: 02-03-2020 PAP TESTING PAP TESTING [facility] Start: 10-18-2019 Adult depression screening assessment DEPRESSION SCREENING [facility] Start: 2019 COLOGUARD (FIT-DNA) COLOGUARD (FIT-DNA) [facility] Start: [address] COLONOGRAPHY [facility] Start: 2019 FECAL OCCULT BLOOD FECAL OCCULT BLOOD [facility] Start: 2019 SIGMOIDOSCOPY SIGMOIDOSCOPY [facility] Start: 1992 HEPATITIS C SCREENING HEPATITIS C SCREENING [facility] Start: 1992 HIV SCREENING HIV SCREENING [facility] Start: 1974 HEPATITIS B (1 of 3 - 3-dose series) HEPATITIS B (1 of 3 - 3-dose series) [facility] End: 09-12-2022 Screening colonoscopy COLONOSCOPY SCREENING Endoscopy Routine History of colonic polyps 1 Occurrences starting 09/12/2021 until 09/12/2022 [facility] Work Phone: Immunizations Immunization Date Immunization Notes Care Provider Fa cility 03-15-2020 COVID-19 vaccine (UNSPECIFIED) Jojo Shelton MD Work Phone: [facility] 07-18-2017 tetanus toxoid, redu lola diphtheria toxoid, and acellular pertussis vaccine, adsorbed Jojo Shelton MD Work Phone: [facility] 11-20-2014 influenza, injectabl e, quadrivalent, contains preservative Jojo Shelton MD Work Phone: [facility] 12-09-2013 influenza, seasonal, injectable Jojo Shelton MD Work Phone: [facility] 11-26-2012 influenza virus vaccine, unspecified formulation Jojo Shelton MD Work Phone: [facility] Work Phone: 11-08-2011 influenza virus vaccine, unspecified formulation Jojo Shelton MD Work Phone: [facility] 12-02-2010 influenza virus vaccine, unspecified formulation Jojo Shelton MD Work Phone: [facility] Work Phone: 11-26-2009 influenza virus vaccine, live, attenuated, for intranasal use Jojo Shelton MD Work Phone: [facility] Work Phone: 11-30-2008 influenza virus vaccine, live, attenuated, for intranasal use Jojo Shelton MD Work Phone: [facility] Work Phone: 11-28-2007 influenza virus vaccine, live, attenuated, for intranasal use Jojo Shelton MD Work Phone: [facility] Work Phone: 12-10-2006 influenza virus vaccine, unspecified formulation Jojo Shelton MD Work Phone: [facility] Work Phone: 12-15-2005 influenza virus vaccine, unspecified formulation Jojo Shelton MD Work Phone: [facility] Work Phone: 12-05-2004 influenza virus vaccine, unspecified formulation Jojo Shelton MD Work Phone: [facility] 04-06-1987 diphtheria and tetan us toxoids, adsorbed for pediatric use Jojo Shelton MD Work Phone: [facility] Work Phone: Payers Date Payer Category Payer Unknown [id number] 2018 Unknown [id number] 1975 Unknown [id number] Social History Date Type Detail Facility Tobacco smoking stat us ILIS Never smoked tobacco [facility] Start: 09-12-2021 End: 10-30-2021 Alcohol intake Current drinker of alcohol (finding) [facility] Start: 04-23-2011 History SDOH Alcohol Comment rarely [facility] Start: 1975 Sex Assigned At Not on file [facility] Start: 09-02-2021 End: 10-20-2021 Exposure to SARS-CoV-2 (event) Not sure [facility] Clinical Notes 08-22-2004 to 11-01-2021 Telephone Encounter - Jojo Shelton MD - 11/01/2021 5:43 PM EDTTelephone Encounter - Cara Reid RN - 10/30/2021 3:19 PM EDTTelephone Encounter - Deanna Narayan - 10/30/2021 9:06 AM EDT Note Date & Type Note Facility 11-01-2021 Miscellaneous Notes Told patient results of colonoscopy done on 10/20/2021. Pathology revealed cecal tubular adenoma Have recommended surveillance colonoscopy in 5 years. Patient acknowledges above. documented in this encounter [facility] 10-30-2021 Miscellaneous Notes Isaac (Lashell) called back. Reviewed Mira's message with her. She voiced understanding. Health maintenance and surgical history previously updated. Cara Reid RN Left message for patient to call office. Patient did not sign in for scheduled virtual visit to review endoscopy results. Can let her know that polyp returned as tubular adenoma. Dr. Shelton has recommended repeat colonoscopy in 5 years. Please update HM and surgical history and generate recall letter documented in this encounter [facility] 10-20-2021 Nurse Note Arrived in phase II via cot, left lateral position, eyes open to verbal stimuli, skin warm and dry, respirations regular and unlabored, denies abdominal pain, cramping or nausea, abdomen soft and non distended. Resting comfortably. documented in this encounter [facility] 10-20-2021 History and physical note UPDATED PROCEDURAL SEDATION HISTORY AND PHYSICAL EXAMINATION SERVICE DATE: 10/20/2021 SERVICE TIME: 8:19 PHYSICAL EXAM MUST BE COMPLETED ON ADMISSION PROCEDURE: colonoscopy, possible biopsies Procedure Indications: history of colon polyps The History and Physical (completed in the past 30 days) has been reviewed and the patient has been examined. The contents accurately reflect the patient's condition with the following additions or revisions since the H&P was completed. ASA Class: ASA Class:: Patient with mild systemic disease Examination indicates no changes. AIRWAY: Airway Visualization of Uvula: Yes Mouth opening greater than 2 fingerbreadths: Yes Neck Full Range of Motion: Yes LUNGS: Lungs clear to auscultation CARDIAC: Regular rhythm,Regular rate Provisional Diagnosis/Treatment Plan: colonoscopy, possible biopsies SEDATION GOAL: Moderate This H&P can be found in the Electronic Medical Record . SIGNATURE: Jojo Shelton MD PATIENT NAME: Isaac Stern DATE: October 20, 2021 TIME: 8:21 AM Source Note - Jojo Shelton MD - 10/20/2021 9:00 AM EDT HISTORY AND PHYSICAL Isaac Stern 1975 REFERRING PHYSICIAN: Agusto Romero MD CHIEF COMPLAINT: Consult (colonoscopy) HPI: The patient is a 46 year old female presents for surveillance colonoscopy for history of colon polyps. The patient denies blood in stools, denies abdominal pain. She notes hard stools, she states that she may not have a bowel movement for up to three days. The patient notes no colon cancer in immediate family, has grandparent and cousin with colon cancer. The patient has had previous colonoscopy in 2019 with findings of colon polyp. PAST MEDICAL HISTORY Diagnosis Date Benign neoplasm of colon Blood in stool Kidney stone 04/2017 Overweight (BMI 25.0-29.9) Sun-damaged skin Dr Abimael Monk PAST SURGICAL HISTORY Procedure Laterality Date BUNIONECTOMY, LAPIDUS-TYPE Left 2013 bunionectomy COLONOSCOPY FLX DX W/COLLJ SPEC WHEN PFRMD 03/30/2008 Colonoscopy COLONOSCOPY FLX DX W/COLLJ SPEC WHEN PFRMD 11/03/2018 Colonoscopy DILATION & CURETTAGE DX&/THER NONOBSTETRIC Dilation & curettage EXTRACTION, ERUPTED TOOTH OR EXPOSED ROOT (ELEVATION AND/OR FORCEPS REMOVAL) wisdom teeth LAPS ABD PRTM&OMENTUM DX W/WO SPEC BR/WA SPX Laparoscopy SIGMOIDOSCOPY FLX W/RMVL TUMOR BY HOT BX FORCEPS 12/30/07 Current Outpatient Medications Medication Sig peg 3350-Electrolytes (GOLYTELY) 236-22.74-6.74 -5.86 gram suspension Take 4,000 mL by mouth one time only for 1 dose. Refer to printed prep instructions from your provider. ferrous sulfate 325 mg (65 mg iron) tablet Take 1 tablet by mouth daily with breakfast. albuterol HFA (PROVENTIL HFA, VENTOLIN HFA) 90 mcg/actuation inhaler INHALE 1 TO 2 PUFFS BY MOUTH EVERY 4 TO 6 HOURS NEEDED FOR SHORTNESS OF BREATH azithromycin (ZITHROMAX) 250 mg tablet COMPOUNDED PRESCRIPTION once daily. Plexus daily (Patient not taking: Reported on 09/12/2021 ) docusate sodium (COLACE) 100 mg capsule Take 1 capsule by mouth twice daily as needed for Constipation. ALLERGIES: Antihistamines and Peanuts PERSONAL HISTORY: Social History Tobacco Use Smoking status: Never Smoker Smokeless tobacco: Never Used Vaping Use Vaping Use: Never used Substance Use Topics Alcohol use: Yes Comment: Rarely Drug use: No FAMILY HISTORY Problem Relation Age of Onset Cancer Father Prostate Cancer Maternal Grandmother OVARIAN Diabetes Maternal Grandmother Cancer Maternal Grandfather SKIN-non melanoma Stroke Maternal Grandfather Cancer Paternal Grandmother colon age 60s Cancer Maternal Aunt skin-basal cell The review of systems data was entered by the nurse and reviewed by me Nursing Notes: Tisha Ford RN 09/12/2021 9:17 AM Signed REVIEW OF SYSTEMS: General: The patient denies fatigue, denies weight loss, denies weight gain, denies feeling hot, and denies feelings of cold. Eyes: The patient denies glaucoma, denies eye injury/surgery, wears glasses or contacts. Ear/Nose/Throat: The patient NOTES allergies, denies hayfever, denies ear infections, and denies bloody noses. Cardiovascular: The patient denies chest pain, denies heart disease, denies high blood pressure,denies cardiac stent, denies prior heart attack, denies irregular heart beat, denies high cholesterol, denies poor circulation, denies heart failure, other cardiac issues, denies claudication, NOTES cold feet, denies peripheral arterial stent. Respiratory: The patient denies tuberculosis, denies pneumonia, denies frequent cough, denies pulmonary embolism, denies shortness of breath, and denies coughing up blood. Gastrointestinal: The patient denies difficulty swallowing, denies acid reflux, denies ulcers, denies vomiting, denies jaundice/hepatitis, denies gallbladder problems, denies black or tarry stools, denies hemorrhoids, denies bleeding from rectum, denies diverticulitis, NOTES constipation, denies diarrhea, denies loss of stool control, and denies hernias. Kidney/Bladder: The patient NOTES kidney stones, denies urine infections, and denies bloody urine. Skin: The patient denies a history of skin cancer, denies bleeding/changing moles, and denies a history of skin rash. Neurologic: The patient denies a history of epilepsy/convulsions, denies headaches, denies head/spinal injuries, and denies stroke/TIA. Psychiatric: The patient denies psychiatric medications, denies depression, and denies voices, denies substance abuse. Endocrine: The patient denies thyroid disorders, denies diabetes, and denies hormonal problems. Hematologic: The patient denies a history of bruising, denies bleeding, and NOTES anemia, denies blood clots. Infections: The patient denies a history of measles and mumps, denies rheumatic fever, and denies sexually transmitted diseases. Musculoskeletal: The patient denies back pain/injury, denies back problems, denies sciatica, denies knee/foot trouble, denies arthritis, or denies gout. When was patient's last Mammogram screening? 2021 Last Colonoscopy: 2018 Tisha Ford RN PHYSICAL EXAMINATION: General: The patient is 46 year old female, well nourished, well hydrated in no acute distress. The patient is oriented to time, place, and person. VITALS: Blood pressure 110/82, pulse 94, height 165.1 cm (5' 5 ), weight 72.2 kg (159 lb 3.2 oz), last menstrual period 12/21/2014, SpO2 100 %. Body mass index is 26.49 kg/m . Head: Normal cephalic, atraumatic Eyes: pupils are equally round, sclera are clear/anicteric, wearing glasses Neck is supple with no tracheal deviation Respiratory: Normal respiratory excursion and pattern. Abdominal exam: benign Extremities: no clubbing, cyanosis or edema. Neuro: non focal Psych: normal mood IMPRESSION: surveillance colonoscopy for history of colon polyps PLAN: I have discussed the above with the patient. I have offered colonoscopy , possible biopsies I have explained the procedure to the patient. I have counseled the patient as to the risks of the procedure, including but not limited to: infection, bleeding, injury to any intrabdominal organs such as liver/spleen, perforation of the GI tract, inability to complete the procedure, complications of anesthesia, etc. - the patient understands. The patient wishes to proceed. I have answered all questions to the patient s satisfaction and the patient has no further questions. Diagnoses: (Z86.010) History of colonic polyps (primary encounter diagnosis) Jojo Shelton MD Note Details HISTORY AND PHYSICAL Isaac Stern 1975 REFERRING PHYSICIAN: Agusto Romero MD CHIEF COMPLAINT: Consult (colonoscopy) HPI: The patient is a 46 year old female presents for surveillance colonoscopy for history of colon polyps. The patient denies blood in stools, denies abdominal pain. She notes hard stools, she states that she may not have a bowel movement for up to three days. The patient notes no colon cancer in immediate family, has grandparent and cousin with colon cancer. The patient has had previous colonoscopy in 2019 with findings of colon polyp. PAST MEDICAL HISTORY Diagnosis Date Benign neoplasm of colon Blood in stool Kidney stone 04/2017 Overweight (BMI 25.0-29.9) Sun-damaged skin Dr Abimael Monk PAST SURGICAL HISTORY Procedure Laterality Date BUNIONECTOMY, LAPIDUS-TYPE Left 2013 bunionectomy COLONOSCOPY FLX DX W/COLLJ SPEC WHEN PFRMD 03/30/2008 Colonoscopy COLONOSCOPY FLX DX W/COLLJ SPEC WHEN PFRMD 11/03/2018 Colonoscopy DILATION & CURETTAGE DX&/THER NONOBSTETRIC Dilation & curettage EXTRACTION, ERUPTED TOOTH OR EXPOSED ROOT (ELEVATION AND/OR FORCEPS REMOVAL) wisdom teeth LAPS ABD PRTM&OMENTUM DX W/WO SPEC BR/WA SPX Laparoscopy SIGMOIDOSCOPY FLX W/RMVL TUMOR BY HOT BX FORCEPS 12/30/07 Current Outpatient Medications Medication Sig peg 3350-Electrolytes (GOLYTELY) 236-22.74-6.74 -5.86 gram suspension Take 4,000 mL by mouth one time only for 1 dose. Refer to printed prep instructions from your provider. ferrous sulfate 325 mg (65 mg iron) tablet Take 1 tablet by mouth daily with breakfast. albuterol HFA (PROVENTIL HFA, VENTOLIN HFA) 90 mcg/actuation inhaler INHALE 1 TO 2 PUFFS BY MOUTH EVERY 4 TO 6 HOURS NEEDED FOR SHORTNESS OF BREATH azithromycin (ZITHROMAX) 250 mg tablet COMPOUNDED PRESCRIPTION once daily. Plexus daily (Patient not taking: Reported on 09/12/2021 ) docusate sodium (COLACE) 100 mg capsule Take 1 capsule by mouth twice daily as needed for Constipation. ALLERGIES: Antihistamines and Peanuts PERSONAL HISTORY: Social History Tobacco Use Smoking status: Never Smoker Smokeless tobacco: Never Used Vaping Use Vaping Use: Never used Substance Use Topics Alcohol use: Yes Comment: Rarely Drug use: No FAMILY HISTORY Problem Relation Age of Onset Cancer Father Prostate Cancer Maternal Grandmother OVARIAN Diabetes Maternal Grandmother Cancer Maternal Grandfather SKIN-non melanoma Stroke Maternal Grandfather Cancer Paternal Grandmother colon age 60s Cancer Maternal Aunt skin-basal cell The review of systems data was entered by the nurse and reviewed by sd Nursing Notes: Tisha Ford RN 09/12/2021 9:17 AM Signed REVIEW OF SYSTEMS: General: The patient denies fatigue, denies weight loss, denies weight gain, denies feeling hot, and denies feelings of cold. Eyes: The patient denies glaucoma, denies eye injury/surgery, wears glasses or contacts. Ear/Nose/Throat: The patient NOTES allergies, denies hayfever, denies ear infections, and denies bloody noses. Cardiovascular: The patient denies chest pain, denies heart disease, denies high blood pressure,denies cardiac stent, denies prior heart attack, denies irregular heart beat, denies high cholesterol, denies poor circulation, denies heart failure, other cardiac issues, denies claudication, NOTES cold feet, denies peripheral arterial stent. Respiratory: The patient denies tuberculosis, denies pneumonia, denies frequent cough, denies pulmonary embolism, denies shortness of breath, and denies coughing up blood. Gastrointestinal: The patient denies difficulty swallowing, denies acid reflux, denies ulcers, denies vomiting, denies jaundice/hepatitis, denies gallbladder problems, denies black or tarry stools, denies hemorrhoids, denies bleeding from rectum, denies diverticulitis, NOTES constipation, denies diarrhea, denies loss of stool control, and denies hernias. Kidney/Bladder: The patient NOTES kidney stones, denies urine infections, and denies bloody urine. Skin: The patient denies a history of skin cancer, denies bleeding/changing moles, and denies a history of skin rash. Neurologic: The patient denies a history of epilepsy/convulsions, denies headaches, denies head/spinal injuries, and denies stroke/TIA. Psychiatric: The patient denies psychiatric medications, denies depression, and denies voices, denies substance abuse. Endocrine: The patient denies thyroid disorders, denies diabetes, and denies hormonal problems. Hematologic: The patient denies a history of bruising, denies bleeding, and NOTES anemia, denies blood clots. Infections: The patient denies a history of measles and mumps, denies rheumatic fever, and denies sexually transmitted diseases. Musculoskeletal: The patient denies back pain/injury, denies back problems, denies sciatica, denies knee/foot trouble, denies arthritis, or denies gout. When was patient's last Mammogram screening? 2021 Last Colonoscopy: 2019 Tisha Ford RN PHYSICAL EXAMINATION: General: The patient is 46 year old female, well nourished, well hydrated in no acute distress. The patient is oriented to time, place, and person. VITALS: Blood pressure 110/82, pulse 94, height 165.1 cm (5' 5 ), weight 72.2 kg (159 lb 3.2 oz), last menstrual period 12/21/2014, SpO2 100 %. Body mass index is 26.49 kg/m . Head: Normal cephalic, atraumatic Eyes: pupils are equally round, sclera are clear/anicteric, wearing glasses Neck is supple with no tracheal deviation Respiratory: Normal respiratory excursion and pattern. Abdominal exam: benign Extremities: no clubbing, cyanosis or edema. Neuro: non focal Psych: normal mood IMPRESSION: surveillance colonoscopy for history of colon polyps PLAN: I have discussed the above with the patient. I have offered colonoscopy , possible biopsies I have explained the procedure to the patient. I have counseled the patient as to the risks of the procedure, including but not limited to: infection, bleeding, injury to any intrabdominal organs such as liver/spleen, perforation of the GI tract, inability to complete the procedure, complications of anesthesia, etc. - the patient understands. The patient wishes to proceed. I have answered all questions to the patient s satisfaction and the patient has no further questions. Diagnoses: (Z86.010) History of colonic polyps (primary encounter diagnosis) Jojo Shelton MD Note Details documented in this encounter [facility] 09-12-2021 Note HNO ID: [id number] Author: Jojo Shelton MD Service: ? Author Type: Physician Type: Progress Notes Filed: 09/16/2021 4:05 PM Note Text: HISTORY AND PHYSICAL Isaac Stern 1975 REFERRING PHYSICIAN: Agusto Romero MD CHIEF COMPLAINT: Consult (colonoscopy) HPI: The patient is a 46 year old female presents for surveillance colonoscopy for history of colon polyps. The patient denies blood in stools, denies abdominal pain. She notes hard stools, she states that she may not have a bowel movement for up to three days. The patient notes no colon cancer in immediate family, has grandparent and cousin with colon cancer. The patient has had previous colonoscopy in 2019 with findings of colon polyp. PAST MEDICAL HISTORY Diagnosis Date Benign neoplasm of colon Blood in stool Kidney stone 04/2017 Overweight (BMI 25.0-29.9) Sun-damaged skin Dr Abimael Monk PAST SURGICAL HISTORY Procedure Laterality Date BUNIONECTOMY, LAPIDUS-TYPE Left 2013 bunionectomy COLONOSCOPY FLX DX W/COLLJ SPEC WHEN PFRMD 03/30/2008 Colonoscopy COLONOSCOPY FLX DX W/COLLJ SPEC WHEN PFRMD 11/03/2018 Colonoscopy DILATION AND CURETTAGE DXAND/THER NONOBSTETRIC Dilation AND curettage EXTRACTION, ERUPTED TOOTH OR EXPOSED ROOT (ELEVATION AND/OR FORCEPS REMOVAL) wisdom teeth LAPS ABD PRTMANDOMENTUM DX W/WO SPEC BR/WA SPX Laparoscopy SIGMOIDOSCOPY FLX W/RMVL TUMOR BY HOT BX FORCEPS 12/30/07 Current Outpatient Medications Medication Sig peg 3350-Electrolytes (GOLYTELY) 236-22.74-6.74 -5.86 gram suspension Take 4,000 mL by mouth one time only for 1 dose. Refer to printed prep instructions from your provider. ferrous sulfate 325 mg (65 mg iron) tablet Take 1 tablet by mouth daily with breakfast. albuterol HFA (PROVENTIL HFA, VENTOLIN HFA) 90 mcg/actuation inhaler INHALE 1 TO 2 PUFFS BY MOUTH EVERY 4 TO 6 HOURS NEEDED FOR SHORTNESS OF BREATH azithromycin (ZITHROMAX) 250 mg tablet COMPOUNDED PRESCRIPTION once daily. Plexus daily (Patient not taking: Reported on 09/12/2021 ) docusate sodium (COLACE) 100 mg capsule Take 1 capsule by mouth twice daily as needed for Constipation. ALLERGIES: Antihistamines and Peanuts PERSONAL HISTORY: Social History Tobacco Use Smoking status: Never Smoker Smokeless tobacco: Never Used Vaping Use Vaping Use: Never used Substance Use Topics Alcohol use: Yes Comment: Rarely Drug use: No FAMILY HISTORY Problem Relation Age of Onset Cancer Father Prostate Cancer Maternal Grandmother OVARIAN Diabetes Maternal Grandmother Cancer Maternal Grandfather SKIN-non melanoma Stroke Maternal Grandfather Cancer Paternal Grandmother colon age 60s Cancer Maternal Aunt skin-basal cell The review of systems data was entered by the nurse and reviewed by sd Nursing Notes: Tisha Ford RN 09/12/2021 9:17 AM Signed REVIEW OF SYSTEMS: General: The patient denies fatigue, denies weight loss, denies weight gain, denies feeling hot, and denies feelings of cold. Eyes: The patient denies glaucoma, denies eye injury/surgery, wears glasses or contacts. Ear/Nose/Throat: The patient NOTES allergies, denies hayfever, denies ear infections, and denies bloody noses. Cardiovascular: The patient denies chest pain, denies heart disease, denies high blood pressure,denies cardiac stent, denies prior heart attack, denies irregular heart beat, denies high cholesterol, denies poor circulation, denies heart failure, other cardiac issues, denies claudication, NOTES cold feet, denies peripheral arterial stent. Respiratory: The patient denies tuberculosis, denies pneumonia, denies frequent cough, denies pulmonary embolism, denies shortness of breath, and denies coughing up blood. Gastrointestinal: The patient denies difficulty swallowing, denies acid reflux, denies ulcers, denies vomiting, denies jaundice/hepatitis, denies gallbladder problems, denies black or tarry stools, denies hemorrhoids, denies bleeding from rectum, denies diverticulitis, NOTES constipation, denies diarrhea, denies loss of stool control, and denies hernias. Kidney/Bladder: The patient NOTES kidney stones, denies urine infections, and denies bloody urine. Skin: The patient denies a history of skin cancer, denies bleeding/changing moles, and denies a history of skin rash. Neurologic: The patient denies a history of epilepsy/convulsions, denies headaches, denies head/spinal injuries, and denies stroke/TIA. Psychiatric: The patient denies psychiatric medications, denies depression, and denies voices, denies substance abuse. Endocrine: The patient denies thyroid disorders, denies diabetes, and denies hormonal problems. Hematologic: The patient denies a history of bruising, denies bleeding, and NOTES anemia, denies blood clots. Infections: The patient denies a history of measles and mumps, denies rheumatic fever, and denies sexually transmitted diseases. Mus (more content not included)... [facility] 09[facility]12[facility] History of Presen t illness Narrative HISTORY AND PHYSICAL Isaac Stern 1975 REFERRING PHYSICIAN: Agusto Romero MD CHIEF COMPLAINT: Consult (colonoscopy) HPI: The patient is a 46 year old female presents for surveillance colonoscopy for history of colon polyps. The patient denies blood in stools, denies abdominal pain. She notes hard stools, she states that she may not have a bowel movement for up to three days. The patient notes no colon cancer in immediate family, has grandparent and cousin with colon cancer. The patient has had previous colonoscopy in 2019 with findings of colon polyp. PAST MEDICAL HISTORY Diagnosis Date Benign neoplasm of colon Blood in stool Kidney stone 04/2017 Overweight (BMI 25.0-29.9) Sun-damaged skin Dr Abimael Monk PAST SURGICAL HISTORY Procedure Laterality Date BUNIONECTOMY, LAPIDUS-TYPE Left 2013 bunionectomy COLONOSCOPY FLX DX W/COLLJ SPEC WHEN PFRMD 03/30/2008 Colonoscopy COLONOSCOPY FLX DX W/COLLJ SPEC WHEN PFRMD 11/03/2018 Colonoscopy DILATION & CURETTAGE DX&/THER NONOBSTETRIC Dilation & curettage EXTRACTION, ERUPTED TOOTH OR EXPOSED ROOT (ELEVATION AND/OR FORCEPS REMOVAL) wisdom teeth LAPS ABD PRTM&OMENTUM DX W/WO SPEC BR/WA SPX Laparoscopy SIGMOIDOSCOPY FLX W/RMVL TUMOR BY HOT BX FORCEPS 12/30/07 Current Outpatient Medications Medication Sig peg 3350-Electrolytes (GOLYTELY) 236-22.74-6.74 -5.86 gram suspension Take 4,000 mL by mouth one time only for 1 dose. Refer to printed prep instructions from your provider. ferrous sulfate 325 mg (65 mg iron) tablet Take 1 tablet by mouth daily with breakfast. albuterol HFA (PROVENTIL HFA, VENTOLIN HFA) 90 mcg/actuation inhaler INHALE 1 TO 2 PUFFS BY MOUTH EVERY 4 TO 6 HOURS NEEDED FOR SHORTNESS OF BREATH azithromycin (ZITHROMAX) 250 mg tablet COMPOUNDED PRESCRIPTION once daily. Plexus daily (Patient not taking: Reported on 09/12/2021 ) docusate sodium (COLACE) 100 mg capsule Take 1 capsule by mouth twice daily as needed for Constipation. ALLERGIES: Antihistamines and Peanuts PERSONAL HISTORY: Social History Tobacco Use Smoking status: Never Smoker Smokeless tobacco: Never Used Vaping Use Vaping Use: Never used Substance Use Topics Alcohol use: Yes Comment: Rarely Drug use: No FAMILY HISTORY Problem Relation Age of Onset Cancer Father Prostate Cancer Maternal Grandmother OVARIAN Diabetes Maternal Grandmother Cancer Maternal Grandfather SKIN-non melanoma Stroke Maternal Grandfather Cancer Paternal Grandmother colon age 60s Cancer Maternal Aunt skin-basal cell The review of systems data was entered by the nurse and reviewed by sd Nursing Notes: Tisha Ford RN 09/12/2021 9:17 AM Signed REVIEW OF SYSTEMS: General: The patient denies fatigue, denies weight loss, denies weight gain, denies feeling hot, and denies feelings of cold. Eyes: The patient denies glaucoma, denies eye injury/surgery, wears glasses or contacts. Ear/Nose/Throat: The patient NOTES allergies, denies hayfever, denies ear infections, and denies bloody noses. Cardiovascular: The patient denies chest pain, denies heart disease, denies high blood pressure,denies cardiac stent, denies prior heart attack, denies irregular heart beat, denies high cholesterol, denies poor circulation, denies heart failure, other cardiac issues, denies claudication, NOTES cold feet, denies peripheral arterial stent. Respiratory: The patient denies tuberculosis, denies pneumonia, denies frequent cough, denies pulmonary embolism, denies shortness of breath, and denies coughing up blood. Gastrointestinal: The patient denies difficulty swallowing, denies acid reflux, denies ulcers, denies vomiting, denies jaundice/hepatitis, denies gallbladder problems, denies black or tarry stools, denies hemorrhoids, denies bleeding from rectum, denies diverticulitis, NOTES constipation, denies diarrhea, denies loss of stool control, and denies hernias. Kidney/Bladder: The patient NOTES kidney stones, denies urine infections, and denies bloody urine. Skin: The patient denies a history of skin cancer, denies bleeding/changing moles, and denies a history of skin rash. Neurologic: The patient denies a history of epilepsy/convulsions, denies headaches, denies head/spinal injuries, and denies stroke/TIA. Psychiatric: The patient denies psychiatric medications, denies depression, and denies voices, denies substance abuse. Endocrine: The patient denies thyroid disorders, denies diabetes, and denies hormonal problems. Hematologic: The patient denies a history of bruising, denies bleeding, and NOTES anemia, denies blood clots. Infections: The patient denies a history of measles and mumps, denies rheumatic fever, and denies sexually transmitted diseases. Musculoskeletal: The patient denies back pain/injury, denies back problems, denies sciatica, denies knee/foot trouble, denies arthritis, or denies gout. When was patient's last Mammogram screening? 2021 Last Colonoscopy: 2018 Tisha Ford RN PHYSICAL EXAMINATION: General: The patient is 46 year old female, well nourished, well hydrated in no acute distress. The patient is oriented to time, place, and person. VITALS: Blood pressure 110/82, pulse 94, height 165.1 cm (5' 5 ), weight 72.2 kg (159 lb 3.2 oz), last menstrual period 12/21/2014, SpO2 100 %. Body mass index is 26.49 kg/m . Head: Normal cephalic, atraumatic Eyes: pupils are equally round, sclera are clear/anicteric, wearing glasses Neck is supple with no tracheal deviation Respiratory: Normal respiratory excursion and pattern. Abdominal exam: benign Extremities: no clubbing, cyanosis or edema. Neuro: non focal Psych: normal mood Assessment IMPRESSION: surveillance colonoscopy for history of colon polyps PLAN: I have discussed the above with the patient. I have offered colonoscopy , possible biopsies I have explained the procedure to the patient. I have counseled the patient as to the risks of the procedure, including but not limited to: infection, bleeding, injury to any intrabdominal organs such as liver/spleen, perforation of the GI tract, inability to complete the procedure, complications of anesthesia, etc. - the patient understands. The patient was offered a surgery/procedure at a [facility]. The provider and patient have discussed in detail the risk of exposure to and/or potential harm posed by the COVID-19 virus with having a surgery/procedure at this time versus the risk of delaying the surgery/procedure. It is not possible to know either the risk of delaying the surgery or procedure or chance of getting an infection with perfect accuracy, but a joint decision was made between the patient and the provider to proceed at this time with the scheduled surgery/procedure. I have explained to the patient the difference between IV conscious sedation and MAC anesthesia - and I have offered either, according to the patient's wishes. I have explained that with IV conscious sedation there is no anesthesia provider available and therefore there is a limitation of the amount of IV medications that can be given and that the patient may wake up in the middle of the procedure and/or experience pain/discomfort during the procedure. Further discussion was done and the patient was given the opportunity to ask questions and all questions were answered. The patient chooses IV conscious sedation. Patient was counseled that if there are changes in his/her medical condition, to let the office know if surgery should proceed. If there are changes in patient's medical condition from time of this encounter to the day of the procedure that preclude anesthesia, patient may have procedure cancelled for patient's safety. The patient wishes to proceed. I have answered all questions to the patient s satisfaction and the patient has no further questions. Diagnoses: (Z86.010) History of colonic polyps (primary encounter diagnosis) I have confirmed and edited as necessary, the PFSH and ROS obtained by others. Return to Clinic: The patient is scheduled for colonoscopy at [facility] on Oct 20. Medical Decision Making: Risk: Low: Low risk from testing/treatment Medical Decision Making Level: 2 - Straightforward Jojo Shelton MD documented in this encounter [facility] 09-12-2021 Instructions Jojo Shelton MD - 09/12/2021 9:30 AM EDT Images from the original note were not included. I have recommended the following for conservative treatment of hemorrhoidal disease: Use of witch paola pads - like Tucks - for comfort Use of mineral oil - to prevent need for straining for hard stools, stools will become slick . Use one tablespoon ,once or twice a day - can mix with apple sauce/etc. Adequate fiber (25-30 grams/day) and water in diet Avoiding prolonged use of hemorrhoidal creams with steroids, using perianal creams with -jing for comfort, etc. Bowel Preparation Instructions for: Golytely, Nulytely, Trilyte or Colyte (polyethylene glycol 3350 and electrolytes) IF YOU DO NOT FOLLOW THESE DIRECTIONS, YOUR COLONOSCOPY WILL BE CANCELLED. [place] Instructions: Your bowel must be empty so that your doctor can clearly view your colon. Follow all of the instructions in this handout EXACTLY as they are written. Do NOT eat any solid food the ENTIRE day before your colonoscopy. Drink only clear liquids. Buy your bowel preparation at least 5 days before your colonoscopy. TRANSPORTATION on the Day of Your Exam A responsible person MUST be present with you at Check In prior to your colonoscopy and REMAIN in the endoscopy area until you are discharged. You are NOT ALLOWED to drive, take a taxi or bus, or leave the Endoscopy Center ALONE. If you do not have a responsible city bus driver (family member or friend) with you to take you home, your exam cannot be done with sedation and will be cancelled. Please bring a list of all of your current medications, including any Over-the Counter medications with you. Medications If you take insulin, diabetic medications or blood thinners such as Coumadin (warfarin), Plavix (clopidogrel), Ticlid (ticlopidine hydrochloride), Agrylin (anagrelide), Xarelto (Rivaroxaban), Pradaxa (Dabigatran), Eliquis (Apixaban), and Effient (Prasugrel). You MUST call the doctors who orders those medicines for instructions on altering the dosage before your colonoscopy. All other medications should be taken the day of the exam with a sip of water including ASPIRIN. Five (5) Days Before Your Colonoscopy Do NOT take medicines that stop diarrhea - such as Imodium, Kaopectate, or Pepto Bismol. Do NOT take fiber supplements - such as Metamucil, Citrucel, or Perdiem. Do NOT take products that contain iron - such as multi-vitamins (the label lists what is in the products). Do NOT take Vitamin E. Buy the prescription bowel preparation solution at your local pharmacy or drugstore pharmacy. 01/2019 Bowel Preparation Instructions for: Golytely, Nulytely, Trilyte or Colyte (polyethylene glycol 3350 and electrolytes) Three (3) Days Before Your Colonoscopy Do NOT eat high-fiber foods - such as popcorn, beans, seeds (flax, sunflower, quinoa), multigrain bread, nuts, salad/vegetables, or fresh and dried fruit. One (1) Day Before Your Colonoscopy Only drink clear liquids the ENTIRE DAY before your colonoscopy. Do NOT eat any solid foods. Drink at least 8 ounces of clear liquids every hour after waking up. The clear liquids you can drink include: Clear Liquid (NO RED LIQUIDS) DO NOT DRINK Gatorade, Pedialyte or Powerade Clear broth or bouillon Coffee or tea (no milk or non-dairy creamer) Carbonated and non-carbonated soft drinks Roger-Aid or other fruit flavored drinks Strained fruit juices (no pulp) Jell-O, popsicles, hard candy Water Alcohol Milk or non-dairy creamers Noodles or vegetables in soup Juice with pulp Liquid you cannot see through Do not use tobacco/vaping products The bowel preparation solution will be consumed in two parts. Mix the solution the evening before your colonoscopy and refrigerate before drinking. You may add the flavor pack that came with the bowel preparation. Do NOT add ice, sugar or any other flavorings to the solution. Part 1 At 6:00 PM - Evening before your colonoscopy Drink an 8-oz glass of bowel preparation every 10 minutes for a total of 8 glasses. You may continue to drink clear liquids until midnight. Part 2 On the day of your colonoscopy you may drink clear liquids up to (three) 3 hours before your procedure. 4 1/2 hours before your colonoscopy Drink an 8-oz glass of bowel preparation every 10 minutes for a total of 8 glasses. Fifteen (15) minutes later, drink an 8-oz glass of clear liquids every 15 minutes for a total of 2 glasses. You may continue to drink clear liquids up to (three) 3 hours before your exam. 3 01/2019 documented in this encounter [facility] 09-12-2021 Nurse Note REVIEW OF SYSTEMS: General: The patient denies fatigue, denies weight loss, denies weight gain, denies feeling hot, and denies feelings of cold. Eyes: The patient denies glaucoma, denies eye injury/surgery, wears glasses or contacts. Ear/Nose/Throat: The patient NOTES allergies, denies hayfever, denies ear infections, and denies bloody noses. Cardiovascular: The patient denies chest pain, denies heart disease, denies high blood pressure,denies cardiac stent, denies prior heart attack, denies irregular heart beat, denies high cholesterol, denies poor circulation, denies heart failure, other cardiac issues, denies claudication, NOTES cold feet, denies peripheral arterial stent. Respiratory: The patient denies tuberculosis, denies pneumonia, denies frequent cough, denies pulmonary embolism, denies shortness of breath, and denies coughing up blood. Gastrointestinal: The patient denies difficulty swallowing, denies acid reflux, denies ulcers, denies vomiting, denies jaundice/hepatitis, denies gallbladder problems, denies black or tarry stools, denies hemorrhoids, denies bleeding from rectum, denies diverticulitis, NOTES constipation, denies diarrhea, denies loss of stool control, and denies hernias. Kidney/Bladder: The patient NOTES kidney stones, denies urine infections, and denies bloody urine. Skin: The patient denies a history of skin cancer, denies bleeding/changing moles, and denies a history of skin rash. Neurologic: The patient denies a history of epilepsy/convulsions, denies headaches, denies head/spinal injuries, and denies stroke/TIA. Psychiatric: The patient denies psychiatric medications, denies depression, and denies voices, denies substance abuse. Endocrine: The patient denies thyroid disorders, denies diabetes, and denies hormonal problems. Hematologic: The patient denies a history of bruising, denies bleeding, and NOTES anemia, denies blood clots. Infections: The patient denies a history of measles and mumps, denies rheumatic fever, and denies sexually transmitted diseases. Musculoskeletal: The patient denies back pain/injury, denies back problems, denies sciatica, denies knee/foot trouble, denies arthritis, or denies gout. When was patient's last Mammogram screening? 2021 Last Colonoscopy: 2018 Tisha Ford RN documented in this encounter [facility] documented as of this encounter (statuses as of 09/16/2021) [facility] History of Past illness Narrative* Problem Noted Date Resolved Date Depressive disorder, not elsewhere classified 04/15/2012 Overview: POST documented as of this encounter (statuses as of 10/21/2021) [facility] History of Past illness Narrative* Problem Noted Date Resolved Date Depressive disorder, not elsewhere classified 04/15/2012 Overview: POST documented as of this encounter (statuses as of 10/30/2021) [address]12-[address] History of Past illness Narrative* Problem Noted Date Resolved Date Depressive disorder, not elsewhere classified 04/15/2012 Overview: POST documented as of this encounter (statuses as of 11/01/2021) [facility] Diagnosis History of colonic polyps- Primary Personal history of colonic polyps documented in this encounter [facility] note* Diagnosis Screening for colon cancer- Primary Special screening for malignant neoplasms, colon History of colonic polyps Personal history of colonic polyps [facility] Outpatient Procedure (Routine) - Pending Review Specialty Diagnoses / Procedures Referred By Pedro adams Referred To Contact [facility] Diagnoses History of colonic polyps Procedures COLONOSCOPY SCREENING COLONOSCOPY FLX DX W/COLLJ SPEC WHEN Jojo Arce MD [facility] [place] [address] [facility] [place] [address] [place] [id number] Referral ID Status Reason Start Date Expiration Date Visits Requested Visits Authorized [id number] Pending Review Auto-Generat ed Referral 09/12/2021 09/12/2022 1 1 [facility] Outpatient Procedure (Routine) - Closed Specialty Diagnoses / Procedures Referred By Pedro adams Referred To Contact [facility] Diagnoses History of colonic polyps Procedures COLONOSCOPY SCREENING COLONOSCOPY FLX DX W/COLLJ SPEC WHEN Jojo Arce MD [address] [place] [address] [facility] [address] [place] [id number] Referral ID Status Reason Start Date Expiration Date V isits Requested Visits Authorized [id number] Closed Auto-Generate d Referral 09/12/2021 09/12/2022 1 1 [facility] for visit Narrative* Outpatient Procedure (Routine) - Closed Specialty Diagnoses / Procedures Referred By Contac t Referred To Contact [facility] Diagnoses History of colonic polyps Procedures COLONOSCOPY SCREENING COLONOSCOPY FLX DX W/COLLJ SPEC WHEN Jojo Arce MD [address] [place] [address] [facility] [address] [place] [id number] Referral ID Status Reason Start Date Expiration Date V isits Requested Visits Authorized [id number] Closed Auto-Generate d Referral 09/12/2021 09/12/2022 1 1 [facility] Medications Administered Section Inactive Administered Medications - up to 3 most recent administrations Medication Order MAR Action Action Date Dose Rate Site fentaNYL 50 mcg/mL 25-100 mcg injection (SUBLIMAZE) 25-100 mcg, INTRAVENOUS, DIRECTED, Starting on Sat10/20/21 at 0930, Until Sat10/20/21 at 1329, DOSING DIRECTED BY PHYSICIAN FOR PROCEDURAL SEDATION ONLY, Intraprocedure Given 10/20/2021 9:18 AM EDT 50 mcg Summary Purpose Family History No Family History Records FoundNo Family History Records Found Advance Directives No Advanced Directives Records FoundNo Advanced Directives Records Found Additional Source Comments Source Comments (unrecognize d section and content) In the event this informatio n is protected by the Federal Confidentiality of Alcohol and Drug Abuse Patient Records regulations: The Federal rules restrict any use of the information to criminally investigate or prosecute any alcohol or drug abuse patient.[facility] event this information is protected by the Federal Confidentiality of Alcohol and Drug Abuse Patient Records regulations: The Federal rules restrict any use of the information to criminally investigate or prosecute any alcohol or drug abuse patient.[facility]In the event this information is protected by the Federal Confidentiality of Alcohol and Drug Abuse Patient Records regulations: The Federal rules restrict any use of the information to criminally investigate or prosecute any alcohol or drug abuse patient.[facility] HamiltonIn the event this information is protected by the Federal Confidentiality of Alcohol and Drug Abuse Patient Records regulations: The Federal rules restrict any use of the information to criminally investigate or prosecute any alcohol or drug abuse patient.[facility] Reason for Visit (unrecogniz ed section and content) Specialty Diagnoses / Procedures Referred By Contac t Referred To Contact General Surgery / GENERAL SURGERY Diagnoses Follow-up exam 3 YEAR COLON CONSULT - DR ROMERO 2019 Procedures OFFICE/OUTPATIENT ESTABLISHED MOD MDM 30-39 MIN NEW DDI PATIENT Self, MD Shelton, Jojo Brooks MD [address] [place] [address] Referral ID Status Reason Start Date Expiration Date Visits Re quested Visits Authorized [id number] Closed 09/12/2021 02/10/2022 1 1 Reason Comments Results Care Teams (unrecognized sec tion and content) [employer] Operator Relationship Specialty Start Date End Date Acosta Cohn MD [address] [place], [place] [id number] PCP - General Family Practice 10/14/18 [employer] Operator Relationship Specialty Start Date End Date Acosta Cohn MD [address] [place] [address] PCP - General Family Practice 10/14/18 [employer] Machine Operator Relationship Specialty Start Date End Date Acosta Cohn MD [address] [place] [address] PCP - General Family Medicine 10/14/18 INFORMATION SOURCE (unrecogn ized section and content) DATE CREATED AUTHOR AUTHOR'S GRAEMEIZ ATION 07/20/2022 [facility] FOR RECORDS PERTAINING TO PATIENTS WHO ARE OR HAVE BEEN ENROLLED IN A CHEMICAL DEPENDENCY/SUBSTANCEABUSE PROGRAM, SOME INFORMATION MAY BE OMITTED. This clinical summary was aggregated from multiple sources. Caution should be exercised in using it in the provision of clinical care. This summary normalizes information from multiple sources, and as a consequence, information in this document may materially change the coding, format and clinical context of patient data. In addition, data may be omitted in some cases. CLINICAL DECISIONS SHOULD BE BASED ON THE PRIMARY CLINICAL RECORDS. [employer] provides no warranty or guarantee of the accuracy or completeness of information in this document.
== END | disposition home or self-care (01) ==
LOC: OPBI 12:06
PROVIDERS: PCP Family Medicine; Referring Provider Nurse Practitioner Women's Health; Visit Provider Nurse Practitioner Women's Health
DX: Z12.31 Encounter for screening mammogram for malignant neoplasm of breast (principal)
CPT/HCPCS: 77063; 77067

== ENCOUNTER → 2024-03-24 | Outpatient (CLI) | payer OTHER, SELFPAY ==
--- NOTE | 2024-03-24 13:54 | BI_ITS ---
PROCEDURE: SCRN MAMM (CAD)W/ZE BILAT REASON FOR EXAM: F, Age 48 y/o, routine mammographic follow-up. No family history. TECHNIQUE: Bilateral screening digital breast tomosynthesis with 2D and 3D images. Computer aided detection. COMPARISON: Prior exam(s) dating back to March 18, 2023.. FINDINGS: The breasts are extremely dense which lowers the sensitivity of mammography. Stable small bilateral axillary lymph nodes. No suspicious masses, areas of developing architectural distortion, or suspicious calcifications. BI/SCRN MAMM (CAD)W/ZE BILAT IMPRESSION: BI-RADS 2: BENIGN. RECOMMEND ANNUAL MAMMOGRAPHIC SCREENING. Follow-up code: Routine Follow-up The patient will be notified of the results by letter. Reading Location: [id number]
== END | disposition home or self-care (01) ==
PROVIDERS: PCP Family Medicine; Referring Provider Nurse Practitioner Women's Health; Visit Provider Nurse Practitioner Women's Health
DX: Z12.31 Encounter for screening mammogram for malignant neoplasm of breast (principal)
CPT/HCPCS: 77063; 77067

== ENCOUNTER → 2024-07-29 | Outpatient (CLI) | payer OTHER, SELFPAY | END | disposition home or self-care (01) | LOC: LABSPEC 16:25 | PROVIDERS: PCP Family Medicine; Visit Provider Nurse Practitioner Family | DX: N89.8 Other specified noninflammatory disorders of vagina (principal) | CPT/HCPCS: 87070; 87205 ==